=== PATIENT | female | born 1975 | race African-American/Black ===

== ENCOUNTER 2021-10-21 18:11 | Emergency (ER) | payer OTHER, SELFPAY ==
--- NOTE | ~2021-10-21 | XR_ITS ---
EXAMINATION: XR lumbar spine 2-3V DATE: 10/21/2021 19:59 INDICATION: Low back pain. TECHNIQUE: 3 views of lumbar spine were obtained. COMPARISON: None. FINDINGS: There is 5 degrees dextrocurvature of thoracolumbar spine. Body heights and intervertebral disc heights are normal. There are endplate osteophytes at most levels. There is multilevel mild face t joint osteoarthritis. Surgical clips in the right upper quadrant are likely from cholecystectomy. IMPRESSION: 1. Mild lumbar spondylosis. Reviewed, dictated and finalized at location [facility]. [employer] IMPRESSION: 1. Mild lumbar spondylosis.
--- NOTE | ~2021-10-21 | XR_ITS ---
EXAMINATION: XR knee LT 3V DATE: 10/21/2021 19:59 INDICATION: Left knee pain. TECHNIQUE: 3 views of left knee were obtained. COMPARISON: None. FINDINGS: Bone alignment is normal. No fracture. There is mild tricompartmental osteoarthritis. No kn ee joint effusion. IMPRESSION: 1. Mild left knee osteoarthritis. Reviewed, dictated and finalized at location E. [employer]
[2021-10-21 18:13] VITALS: BP 152/87; PULSE 89; RESP 18; TEMP 36.4; O2SAT 100
[2021-10-21] MEDS: HYDROcodone/acetaminophen (*CRX) 5-325 MG TABLET 2 TAB PO (19:23)
[2021-10-21 19:37] VITALS: BP 183/105; PULSE 72; RESP 15; O2SAT 100
--- NOTE | 2021-10-21 19:57 | PC.NURSE ---
Pt to XRAY at this time.
[2021-10-21] MEDS: cloNIDine HCL 0.1 MG TABLET PO ×2 (20:42)
--- NOTE | 2021-10-21 20:42 | ED.GENADULT ---
HPI - General Adult General Chief complaint: Back Pain/Injury Stated complaint: Back and left knee pain Time Seen by Provider: 10/21/21 18:46 Source: patient Mode of arrival: ambulatory Limitations: no limitations History of Present Illness HPI narrative: Patient presents for evaluation of low back pain and left knee pain for the last 3 days. She cannot identify any precipitating injury. She states that she sits at a desk most of the day. She knows that she is overweight and has planned weight loss surgery. She has had x rays of her lumbar spine and knees performed in the past and these studies showed arthritis. Lumbar film also showed mild foraminal narrowing. She states pain in the left knee is in the anterior aspect of the joint and radiates down the leg. No pain in the posterior aspect of the leg. She states she has had a venous duplex in the past which was negative. She rates her pain 7 out of 10 in severity. She also rates pain in her low back is 7 out of 10 in severity. She describes the pain as sharp. She denies any saddle anesthesia. She denies bladder/bowel incontinence. She does have some pain in right lower back without any urinary symptoms, fever, chills, nausea or vomiting. She has tried tylenol for her pain which helps somewhat. She states NSAIDS cause GI upset. She experiences episodes of vomiting with tramadol. She has also tried lidoderm patches. Related Data Home Medications Medication Instructions Recorded Confirmed losartan-hydrochlorothiazide 1 tablet PO DAILY 10/21/21 Allergies Allergy/AdvReac Type Severity Reaction Status Date / Time azithromycin Allergy Vomiting Verified 10/21/21 21:14 erythromycin base Allergy Vomiting Verified 10/21/21 21:14 tramadol Allergy Vomiting Verified 10/21/21 21:14 Review of Systems Review of Systems: CONSTITUTIONAL: Denies fever, chills, or sweats. EYES: Denies visual changes, redness, or discharge. ENT: Denies rhinorrhea, congestion, sore throat, or otalgia. CARDIOVASCULAR: Denies chest pain, palpitations, or edema. RESPIRATORY: Denies cough or dyspnea. GASTROINTESTINAL: Denies abdominal pain, nausea, vomiting, or diarrhea. GENITOURINARY: Denies dysuria or hematuria. SKIN: Denies rash or itching. MUSCULOSKELETAL: Reports low back pain and left knee pain. NEUROLOGIC: Denies headache, numbness, dizziness, or weakness. PSYCHIATRIC: Denies anxiety or depression. [facility] Past Medical History Medical History Hypertension Obesity Osteoarthritis Surgical History Surgical History History of cholecystectomy History of hysterectomy History of tonsillectomy Family History Family History Mother Diabetes mellitus Social History Social History Smoking packs per day: 0.25 Smoking cigarettes per day: 5.0 Smoking status: Current every day smoker Alcohol intake: current Alcohol use details: social Living arrangements: alone Additional occupation/education comments: Works for [employer] Gender identity (if verbalized by the patient): Female Sexual Orientation (if Verbalized by the Patient): Straight or Heterosexual Spiritual care concerns: No Exam Narrative: GENERAL: Well-appearing, well-nourished, and in no acute distress. HEAD: Normocephalic, atraumatic. EYES: PERRLA and EOMI. ENT: Nares clear, no rhinorrhea or epistaxis. Mucous membranes moist. Oropharynx without tonsillar hypertrophy exudate or other lesions. Bilateral TMs pearly elizabeth nonbulging NECK: Supple. No adenopathy or masses. No carotid bruits or JVD CHEST: Clear to auscultation. No respiratory distress. No wheezes rales or rhonchi HEART: Regular rate and rhythm. No murmur heard. Normal peripheral pulses. ABDOMEN: Soft,
[2021-10-21 20:43] VITALS: BP 187/119; PULSE 71; RESP 17; O2SAT 99
[2021-10-21 20:57] LABS: Add Urine Microscopic? YES; Appearance Urine Clear (Clear); Bacteria Urine Trace /hpf; Bilirubin Urine Negative (Negative); Blood Urine Negative (Negative); Color Urine Yellow (Yellow); Glucose Urine UA Negative (Negative); Ketones Urine Negative (Negative); Leukocyte Esterase Ur Trace LEU/UL (Negative); Mucus Urine Moderate /lpf; Nitrate Urine Negative (Negative); Protein Urine Negative (Negative); Specific Grav Ur 1.027 (1.001-1.035); Squamous Epithelial Cell Urine Many /hpf (Few); Urobilinogen Urine Negative mg/dL (<2.0)
[2021-10-21 21:11] VITALS: BP 158/104; PULSE 65; RESP 18; O2SAT 99
== END 2021-10-21 21:33 | disposition home or self-care (01) ==
PROVIDERS: Emergency Provider Nurse Practitioner
DX: M47.816 Spondylosis without myelopathy or radiculopathy, lumbar region (principal); M17.12 Unilateral primary osteoarthritis, left knee; I10 Essential (primary) hypertension; E66.9 Obesity, unspecified; Z68.43 Body mass index [BMI] 50.0-59.9, adult; F17.210 Nicotine dependence, cigarettes, uncomplicated
CPT/HCPCS: 72100; 73562; 81001; 99284; A9270

== ENCOUNTER 2023-07-08 07:07 | Emergency (ER) | payer OTHER, SELFPAY ==
[2023-07-08 07:11] VITALS: BP 180/92; PULSE 79; RESP 18; TEMP 36.7; O2SAT 100
[2023-07-08] MEDS: ACETAMINOPHEN/CODEINE (*CRX) 300/30 MG TABLET 1 TAB PO (08:45)
[2023-07-08] MEDS: CIPROFLOXACIN HCL 0.3% OP SOLN 2.5 ML BTL 1 DROP RIGHT EYE (08:45)
--- NOTE | 2023-07-08 10:58 | ED.EYEPROB ---
HPI - Eye Problem General Chief complaint: Eye Problems Stated complaint: eye swelling Time Seen by Provider: 07/08/23 07:17 History of Present Illness HPI Narrative: Patient presenting with severe pain to her right eye, does not recall any recent injury, does not wear contact lenses. Has been tearing up nonstop Related Data Home Medications Medication Instructions Recorded Confirmed losartan 100 1 tablet PO DAILY 10/21/ mg-hydrochlorothiazide 25 mg tablet Allergies Allergy/AdvReac Type Severity Reaction Status Date / Time acetaminophen [From Vicodin] Allergy Itching Verified 07/08/23 07:18 hydrocodone [From Vicodin] Allergy Itching Verified 07/08/23 07:18 azithromycin AdvReac Vomiting Verified 07/08/23 07:19 erythromycin base AdvReac Vomiting Verified 07/08/23 07:19 tramadol AdvReac Vomiting Verified 07/08/23 07:19 Review of Systems Review of Systems: CONST: No fever. HEENT: Eye pain PMFSH Past Medical History Medical History Hypertension Obesity Osteoarthritis Surgical History Surgical History History of cholecystectomy History of hysterectomy History of tonsillectomy Family History Family History Mother Diabetes mellitus Social History Social History Smoking packs per day: 0.25 Smoking cigarettes per day: 5.0 Smoking status: Current every day smoker Alcohol intake: current Alcohol use details: social Living arrangements: alone Additional occupation/education comments: Works for [employer] Gender identity (if verbalized by the patient): Female Sexual Orientation (if Verbalized by the Patient): Straight or Heterosexual Spiritual care concerns: No Exam Narrative: EXAMINATION OF ORGAN SYSTEMS/BODY AREAS: Constitutional: Vital signs per nursing GENERAL: Appears quite uncomfortable, cloth to her right eye, tearing HEAD: Normal with no signs of head trauma. EYES: EOMI, injected conjunctiva right eye, fluorescein uptake to center of eye right eye, PERRL; no signs of foreign body with eversion of lids ENT: Hearing grossly intact LUNGS: Nonlabored breathing. HEART: [Regular rate and rhythm] ABD: [Soft], [nontender to palpation] EXT: Normal range of motion SKIN: [No rashes or lesions.] NEURO: [Alert and oriented x 3. No gross focal sensory or strength deficits.] PSYCH: Normal affect Course Vital Signs Vital signs: Vital Signs Temperature 98.0 F 07/08/23 07:11 Pulse Rate 79 07/08/23 07:11 Respiratory Rate 18 07/08/23 07:11 Blood Pressure 180/92 H 07/08/23 07:11 Pulse Oximetry 100 07/08/23 07:11 Oxygen Delivery Room Air 07/08/23 07:11 Temperature 98.0 F 07/08/23 07:11 Pulse Rate 79 07/08/23 07:11 Respiratory Rate 18 07/08/23 07:11 Blood Pressure 180/92 H 07/08/23 07:11 Pulse Oximetry 100 07/08/23 07:11 Oxygen Delivery Room Air 07/08/23 07:11 MDM - Eye Problem MDM Narrative Medical decision making narrative: 48-year-old female presenting with right eye pain, on exam eye is injected, tearing, with extraocular movements intact, PERRL, pain resolved with tetracaine, patient able to open eyes and rest comfortably, and there is fluorescein uptake to the middle of her right eye, consistent with corneal abrasion. Eyedrops started, she does not wear contact lenses, she will be discharged with pain medications and IV antibiotics, she is unable to tolerate NSAIDs so I will give her narcotic pain medication., She has taken Tylenol 3's in the past and tolerates them well. Strict return precautions discussed, and the need for her to follow-up with an eye doctor in the next 1 to 2 days. Patient agreeable to this plan Discharge Plan Discharge Clinical Impression: Corneal abrasion Patient Disposition: Home, Se
== END 2023-07-08 09:13 | disposition home or self-care (01) ==
PROVIDERS: Emergency Provider Emergency Medicine
DX: S05.01XA Injury of conjunctiva and corneal abrasion without foreign body, right eye, initial encounter (principal); F17.210 Nicotine dependence, cigarettes, uncomplicated; I10 Essential (primary) hypertension; M19.90 Unspecified osteoarthritis, unspecified site; X58.XXXA Exposure to other specified factors, initial encounter
CPT/HCPCS: 99283; A9270

== ENCOUNTER 2025-04-20 15:51 | Emergency (ER) | payer OTHER, SELFPAY ==
--- NOTE | ~2025-04-20 | CT_ITS ---
CLINICAL INDICATION: Epigastric pain COMPARISON: None. TECHNIQUE: Multiple contiguous axial images of the abdomen and pelvis were performed following the ad ministration of with 100 mL Omnipaque-350 intravenous contrast The dose-length product (DLP) was 973.51 mGy-cm. Automated exposure control and iterative reconstruction technique were employed. FINDINGS/OBSERVATIONS: Visualized lower thorax: The bilateral lung bases are clear. The heart is of normal size, without pericardial effusion. Small hiatal hernia is present. Liver: The liver demonstrates homogeneous enhancement and is not enlarged. Gallbladder and biliary system: The gallbladder is surgically absent. Pancreas: The pancreas enhances homogeneously without ductal dilatation. Spleen: The spleen enhances homogeneously and is not enlarged. Kidneys: The bilateral kidneys enhance symmetrically without hydronephrosis or renal calculi. Adrenal glands: Unremarkable. Gastrointestinal tract: Postoperative change within the upper abdomen, consistent with gastric bypass. Trace mural thickening within the gastric pouch. Appendix: The air-filled appendix is of normal caliber (axial series, images 95 through 108) Vasculature: Unremarkable. Lymph nodes: No pathologically enlarged or morphologically suspicious lymph nodes within the retroperitoneum or at the root of the mesentery. Pelvic structures: The bladder is decompressed, limiting its evaluation. The uterus is either surgically absent or atrophic. Body wall and musculoskeletal: No significant degenerative disease within the lower thoracic or lumbosacral spine. IMPRESSION: Findings consistent with patient's history of gastric bypass Trace mural thickening within the gastric pouch. Reviewed, dictated and finalized at location A.
--- OUTSIDE RECORDS SUMMARY | 2025-04-20 15:53 | XMS_ITS | Clinical Summary ---
Author Organization [facility] Address [address] [place] [address] Phone Care Team Providers Care Line Runner Name Role Phone Jesus Bob DO Primary Care Provider [phone] Allergies Active Allergy Reactions Criticality Noted Date Comments Azithromycin Nausea and Vomiting High 10/26/2018 Erythromycin Nausea and Vomiting Low 05/09/2017 Ibuprofen Abdominal Pain Low 02/24/2022 Tramadol Nausea and Vomiting Low 09/18/2018 Medications Multivitamin Capsule 1 tablet(s), Oral, daily, 30 tablet(s), Tablet(s), 0 2 Active blood sugar diagnostic StripIndications :Type 2 diabetes mellitus without complication, without long-term current use of insulin ([facility]) Once daily testing, E11.9 100 Strip 2 Active buPROPion HCL (Wellbutrin XL) 150 mg Extended Release 24 hour tabletIndication s:Tobacco abuse Take 1 Tablet (150 mg) by mouth daily in the morning. 90 Tablet 2 3 Active zolpidem (AMBIEN) 5 mg tabletIndication s:Insomnia, unspecified type TAKE 1 TABLET(5 MG) BY MOUTH EVERY NIGHT NEEDED FOR INSOMNIA 30 Tablet 2 3 Active lisinopril-hydro CHLOROthiazide (ZESTORETIC) 10-12.5 mg tablet Active levomilnacipran (Fetzima) 40 mg Extended Release 24 hour capsule Acti ve escitalopram oxalate (LEXAPRO) 10 mg tablet Active naloxone (NARCAN) 4 mg/spray [place], Non-Aerosol EMERGENCY USE ONLY: Administer 1 spray (4 mg) in one nostril one time. May repeat in alternating nostrils every 2-3 min until responsive or EMS arrives. 2 Each 3 4 Active losartan (COZAAR) 25 mg tabletIndication s:Essential hypertension TAKE 1 TABLET(25 MG) BY MOUTH DAILY 90 Tablet 3 4 Active ALPRAZolam (XANAX) 0.25 mg tabletIndication s:Anxiety TAKE 1 TABLET(0.25 MG) BY MOUTH EVERY NIGHT NEEDED FOR ANXIETY 30 Tablet 4 Active Active Problems Patient Care Coordination No te Formatting of this note migh t be different from the original. Dr. Mo- bariatric surgeon- Ines AWV 02/24/2022 Problem Noted Date Diagnosed Date Liver cyst 09/30/2023 Colitis 04/10/2021 Overview (04/10/2021): Cscope/egd 04/03 Colon polyp 04/08/2021 Overview (2021): Hyperplastic 04/03 Vitamin D deficiency 10/09/2020 Overview (10/09/2020): Vit D 50K/wk 10/04-04/03 Type 2 diabetes mellitus wit hout complication, without long-term current use of insulin 10/09/2020 Primary osteoarthritis of right knee 10/08/2020 Primary osteoarthritis of left knee 10/08/2020 Quadriceps weakness 10/08/2020 Pain in both knees 10/08/2020 Anxiety 07/12/2020 Chronic gastritis 07/12/2020 Seasonal allergic rhinitis 07/12/2020 Depressive disorder 07/12/2020 Essential hypertension 07/12/2020 Insomnia 07/12/2020 Morbid obesity 07/12/2020 Gastroesophageal reflux disease without esophagi tis 07/12/2020 Primary osteoarthritis involving multiple joints 07/12/2020 Chronic midline low back pain without sciatica 1 Kidney stone 07/12/2020 Adrenal adenoma, left 05/22/2020 Overview (07/12/2020): MRI 1.5 cm lipid rich left adrenal adenoma 06/03 Obstructive sleep apnea 12/28/2018 Cerebrospinal fluid rhinorrhea 12/07/2018 Overview (07/12/2020): Added automatically from request for surgery [id number] Tobacco abuse 05/09/2017 Precordial chest pain 05/09/2017 Family History Medical History Relation Name Comments Diabetes Brother 1 Hypertension Brother 1 Diabetes Brother 2 Hypertension Brother 2 Diabetes Brother 3 Hypertension Brother 3 Diabetes Brother 4 Billy delgado Hypertension Brother 4 Billy delgado Diabetes Brother 5 Christopher Delgado Hypertension Brother 5 Christopher Delgado Hypertension Brother 6 Fidencio Delgado Breast Cancer Maternal Aunt Diabetes Mother Chelita Jewell Heart Disease Mother Chelita Jewell Congestive H eart Failure Heart Failure Mother Chelita Jewell CHF Hypertension Mother Chelita Jewell Colon Cancer Neg Hx Relation Name Status Comments Brother 1 Brother 2 Brother 3 Brother 4 Billy delgado Brother 5 Christopher Delgado Brother 6 Fidencio Delgado Father Maternal Aunt Mother Chelita Jewell Alive Social History Tobacco Use Types Packs/Day Years Used Date Smoking Tobacco: Some Days Cigarettes Last attempted to quit: 07/05/1995 Smokeless Tobacco: Never Tobacco Cessation:Ready to Q uit: Not Asked; Counseling Given: Not Answered Alcohol Use Standard Drinks/Week Comments Not Currently 0 (1 standard drink = 0.6 oz pur e alcohol) Monthly Comments No Sex and Gender Information Value Date Recorded Sex Assigned at Not on file Legal Sex Female 3:29 PM CDT Gender Identity Not on file Sexual Orientation Not on file Last Filed Vital Signs Vital Sign Reading Time Taken Comments Blood Pressure 193/96 12/30/2023 12:30 PM CDT Pulse 68 12/30/2023 12:30 PM CDT Temperature 36.7 C (98 F) 12/30/2023 12:30 PM CDT Respiratory Rate 16 12/30/2023 12:30 PM CDT Oxygen Saturation 97% 12/30/2023 12:30 PM CDT Inhaled Oxygen Concentration - - Weight 109.3 kg (241 lb) 12/30/2023 10:10 AM CDT Height 162.6 cm (5' 4) 12/30/2023 10:10 AM CDT Body Mass Index 41.37 12/30/2023 10:10 AM CDT Plan of Treatment Health Maintenance Due Date Last Done Comments DIABETES MICROALBUMIN ANNUAL SCREEN 1993 DTAP/TDAP/TD VACCINES (1 - Tdap) 1994 HEPATITIS B VACCINES (1 of 3 - 19+ 3-dose series) 1994 FIT-DNA Q 3 years 2020 FIT/FOBT Q 1 year 2020 Flex Sig/CT Colonography Q 5 years 2020 DIABETES ANNUAL RETINAL EXAM 02/24/2022, 01/17/2021, 01/17/2021, Additional history exists DIABETES HBA1C Q 6 MONTHS 10/29/20232022, 03/12/2022, 06/27/2021, Additional history exists DIABETES ANNUAL FOOT EXAM 04/08/20242022, 04/08/2023, 03/27/2022 BREAST CANCER SCREENING 04/28/2024 04/28/20 23, 04/28/2023, 03/20/2022, Additional history exists DIABETES: A1C (Auto Order) 04/28/202404/28, 03/12/2022, 06/27/2021, Additional history exists LDL CHOLESTEROL ANNUAL 04/28/2024 , 03/12/2022, 06/27/2021, Additional history exists Preventative Visit- Commercial 09/14/2024 0 04/08/2023, 02/24/2022, 06/27/2021, Additional history exists ZOSTER VACCINE (1 of 2) 2025 INFLUENZA VACCINE (#1) 2025 10/01/2022, 2020 COLORECTAL SCREENING 10/19/2033 10/19/2023, 2021, 04/08/2021 Colorectal Cancer Screening 10/19/2033 Procedures Procedure Name Priority Date/Time Associated Diagnosis Comments LIPID PANEL Routine 04/28/2023 10:33 AM CDT Hyperlipidemia, unspecified hyperlipidemia type HEMOGLOBIN A1C Routine 04/28/2023 10:33 AM CDT Type 2 diabetes mellitus without complication, without long-term current use of insulin ([facility]) MAMMO 3D PETR SCREEN BILAT W OR WO CAD Routine 04/28/2023 9:09 AM CDT Encounter for screening mammogram for malignant neoplasm of breast COLONOSCOPY REPORT 2021 11 :37 AM CDT from Last 3 Months or Most Recently Relevant to Health Maintenance Results * (ABNORMAL) HEMOGLOBIN A1C (04/28/2023 10:33 AM CDT) HEMOGLOBIN A1C 5.7(H) <5.7 % of total Hgb Juan Alberto [employer] BattlesYelena Vanessa Comment: For someone without known diabetes, a hemoglobin A1c value between 5.7% and 6.4% is consistent with prediabetes and should be confirmed with a follow-up test. For someone with known diabetes, a value <7% indicates that their diabetes is well controlled. A1c targets should be individualized based on duration of diabetes, age, comorbid conditions, and other considerations. This assay result is consistent with an increased risk of diabetes. Currently, no consensus exists regarding use of hemoglobin A1c for diagnosis of diabetes for children. ESTIMATED AVERAGE GLUCOSE (MG/DL) 117 mg/dL Juan Alberto [employer] BattlesYelena Vanessa ESTIMATED AVERAGE GLUCOSE (MMOL/L) 6.5 mmol/L Juan Alberto [employer] Batt[employer]elena Vanessa Comment: FASTING:YES FASTING: YES Test Performed at: [facility] [address] [place] [id number] ChioWilliamKimberlyn Olga Lopez Blood 04/28/2023 10:3 3 AM CDT 04/28/2023 10:33 AM CDT Kodi HUSTON CHEMISTRY ORDERABLES Final Res ult [facility] [phone] [place] [address] [address] [place] [address] * (ABNORMAL) LIPID PANEL (04/28/2023 10:33 AM CDT) CHOLESTEROL 193 <200 mg/dL Juan Alberto [employer] BattlesYelena Vanessa HDL 54 > OR = 50 mg/dL Juan Alberto [employer] BattlesYelena Vanessa TRIGLYCERIDE 138 <150 mg/dL Juan Alberto Vanessa LDL CALCULATED 113(H) mg/dL (calc) Juan Alberto [employer] BattlesYelena Vanessa Comment: Reference range: <100 Desirable range <100 mg/dL for primary prevention; <70 mg/dL for patients with CHD or diabetic patients with > or = 2 CHD risk factors. LDL-C is now calculated using the Binh calculation, which is a validated novel method providing better accuracy than the Friedewald equation in the estimation of LDL-C. [employer] et al. THMOAS. 2013;310(47): 2638-7854 (http://education.Predictry/faq/YWN185) CHOL/HDL RATIO 3.6 <5.0 (calc) [facility] TOTAL NON-HDL CHOL(LDL+VLDL) 139(H) <130 mg/dL (calc) [facility] Comment: For patients with diabetes plus 1 major ASCVD risk factor, treating to a non-HDL-C goal of <100 mg/dL (LDL-C of <70 mg/dL) is considered a therapeutic option. FASTING:YES FASTING: YES Test Performed at: [place] [address] [address] [address] ChioTova Lopez Blood 04/28/2023 10:3 3 AM CDT 04/28/2023 10:33 AM CDT Kodi HUSTON CHEMISTRY ORDERABLES Final Res ult [facility] [phone] [place] [address] [address] [place] [address] * MAMMO SCRN BILAT 3D PETR W OR WO CAD (04/28/2023 9:09 AM CDT) Anatomical Region Laterality Modality Breast Bilateral Mammography 04/28/2023 9:09 AM CDT Impressions 04/28/2023 9:50 AM CDT : BI-RADS Category 2, benign mammogram. Recommend yearly bilateral screening mammogram. Narrative 04/28/2023 9:50 AM CDT EXAM: MAMMO SCRN BILAT 3D PETR W OR WO CAD DATE: 04/28/2023 CLINICAL HISTORY: Screening in an asymptomatic patient with a family history of breast cancer TECHNIQUE: Bilateral full field digital mammography and digital tomosynthesis were performed in the CC and MLO projections. Comparison was made to prior bilateral mammograms performed March 20, 2022, February 02, 2021 and September 27, 2019. CAD was utilized. FINDINGS: The breast parenchyma is fatty. The parenchymal pattern is unchanged compared to the prior exams. A few scattered bilateral calcifications are benign in appearance and represent calcified oil cysts. A few scattered bilateral focal asymmetries are unchanged. There is no new suspicious asymmetry or mass, area of architectural distortion or suspicious microcalcification. us Mike Hahn MD MAMMO ORDERABLES Final Result * COLONOSCOPY REPORT (2021 11:37 AM CDT) Narrative Procedure Note Charles Rodriguez MD - 04/08/2021 12:51 PM CDT [facility] Endoscopy Patient Name: Ravinder Delgado Procedure Date: 04/08/2021 Date of : 1975 Attending MD: Charles Rodriguez MD Procedure: Colonoscopy Indications: Diarrhea Providers: Charles Rodriguez MD Referring MD: Bennie Hahn MD Medicines: Propofol per Anesthesia Complications: No immediate complications. Procedure: Informed consent was obtained for the procedure, including moderate sedation after risks were discussed. Based on the pre-procedure assessment, including review of the patient's medical history, medications, allergies, and review of systems, the patient was deemed to be an appropriate candidate for sedation. A timeout was performed. Continuous ECG monitoring, pulse oximetry, blood pressure monitoring, and direct observation were performed. The scope was introduced through the anus and advanced to the cecum, identified by appendiceal orifice and ileocecal valve. The colonoscopy was performed without difficulty. The patient tolerated the procedure well. The quality of the bowel preparation was excellent. Estimated Blood Loss: Estimated blood loss: none. Findings: Normal mucosa was found in the entire colon. Biopsies for histology were taken with a cold forceps from the right colon and left colon for evaluation of microscopic colitis. A diminutive polyp was found in the descending colon. The polyp was sessile. The polyp was removed with a cold biopsy forceps. Resection and retrieval were complete. Impression: - Normal mucosa in the entire examined colon. Biopsied. - One diminutive polyp in the descending colon, removed with a cold biopsy forceps. Resected and retrieved. Recommendation: - Await pathology results. - If the pathology report reveals adenomatous tissue, then repeat the colonoscopy for surveillance in 7 years. - If the pathology report reveals no adenomatous tissue, then repeat the colonoscopy for surveillance in 10 years. Charles Rodriguez MD 04/08/2021 12:50:50 PM This report has been signed electronically. Number of Addenda: [address]; [place] [address] Charles Rodriguez MD GI PROCEDURE ORDERABLES Marycruz l Result from Last 3 Months or Most Recently Relevant to Health Maintenance Insurance [employer] [id number] [employer] Member Subscriber Plan / Payer (Ef fective for All Dates) Name:Ravinder Delgado Relation to Subscriber:Self Name:Ravinder Delgado Subscriber ID:Not on file Payer ID:Not on file Group ID:[id number] Type:RX Commercial Address: [place], [place] RX LERMA PLANS (INTERNAL) [facility] Care Teams Line Runner Relationship Specialty Start Date End Date Jesus Bob DO [address] [place] [id number] [place] [id number] PCP - General Family Practice 09/30/23
--- OUTSIDE RECORDS SUMMARY | 2025-04-20 15:53 | XMS_ITS | Clinical Summary ---
Author Organization [facility] Address [address] [place] [address] Care Team Providers Care Sizer Machine Name Role Phone Mike Hahn MD Primary Care Provider [phone] Source Comments [facility],non-owned Affiliates and Associated Physician Practices is amultiple site organization consisting of ambulatory clinics and hospital sitesin [place], [place], [place] and [place]. This disclosure is being madepursuant to the Care Everywhere program and may not contain all information available regarding this patient. Last updated 18.[facility] Allergies Active Allergy Reactions Criticality Noted Date Comments Azithromycin Vomiting 10/26/2018 Erythromycin Nausea and/or Vomiting 05/09/2017 Tramadol Nausea and/or Vomiting Low 09/18/2018 Medications * Be aware that medications may not be up to date on this document. Alwaysverify current medications with the patient. ALPRAZolam (XANAX) 0.5 MG tablet Take 0.5 mg by mouth 2 times daily 10/05/2020 Active phentermine (ADIPEX-P) 37.5 MG tablet Take 37.5 mg by mouth once daily 10/05/2020 Active losartan-hydroC HLOROthiazide (HYZAAR) 100-25 MG tablet Take 1 tablet by mouth once daily 10/05/2020 Active dicyclomine (BENTYL) 20 MG tablet Take 20 mg by mouth 4 times daily 10/16/2020 Active pantoprazole EC (PROTONIX) 40 MG tablet Take 40 mg by mouth once daily 10/05/2020 Active Cholecalciferol (VITAMIN D3) 1.25 MG (34113 UT) capsule Take 1 capsule by mouth every 7 days 10/09/2020 Active cyclobenzaprine (FLEXERIL) 10 MG tablet Take 10 mg by mouth every 8 hours as needed 06/30/2020 Active fluticasone propionate (FLONASE) 50 MCG/ACT nasal spray once daily as needed 10/05/2020 Active zolpidem (AMBIEN) 5 MG tablet nightly as needed 10/08/2020 Active ondansetron, disintegrating, (ZOFRAN ODT) 4 MG tablet Take 1 (one) tablet by mouth every 6 hours as needed for Nausea/Vomiti ng Allow tablet to dissolve on the tongue 20 tablet 11/02/2020 Active docusate sodium (COLACE) 100 MG capsule Take 1 (one) capsule by mouth once daily 20 capsule 1 11/02/2020 Active HYDROcodone-heber taminophen (NORCO) 5-325 MG tablet Take 1 (one) tablet by mouth every 6 hours as needed for Pain (severe) 8 tablet 12/06/2020 Active Active Problems Problem Noted Date Diagnosed Date KWASI (obstructive sleep apnea) 11/01/2020 S/P tonsillectomy 11/01/2020 Family History Medical History Relation Name Comments Diabetes - Type 2 Brother Cancer - Breast Maternal Aunt Diabetes - Type 2 Mother Hypertension Mother Cancer - Breast Paternal Aunt Cancer - Breast Paternal Grandmother Relation Name Status Comments Brother Maternal Aunt Mother Alive Paternal Aunt Paternal Grandmother Social History Tobacco Use Types Packs/Day Years Used Date Smoking Tobacco: Every Day Cigarettes Smokeless Tobacco: Never Alcohol Use Standard Drinks/Week Comments Yes 0 (1 standard drink = 0.6 oz pur e alcohol) Special Ocassions Comments No Sex and Gender Information Value Date Recorded Sex Assigned at Female 02/27/2021 4:55 PM CDT Legal Sex 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 Gender Identity Female 02/27/2021 4:55 PM CDT Sexual Orientation Straight 02/27/2021 4: 55 PM CDT Last Filed Vital Signs Vital Sign Reading Time Taken Comments Blood Pressure 124/78 03/26/2021 10:39 AM CDT Pulse 81 03/26/2021 10:39 AM CDT Temperature 36.8 C (98.2 F) 03/26/2021 10:39 AM CDT Respiratory Rate 20 03/26/2021 10:3 9 AM CDT Oxygen Saturation 98% 03/26/2021 10: 39 AM CDT Inhaled Oxygen Concentration - - Weight 140.6 kg (310 lb) 05/06/2021 7:55 AM CDT self reported Height 163.8 cm (5' 4.5) 05/06/2021 7:55 AM CDT Body Mass Index 52.39 05/06/2021 7:55 AM CDT Plan of Treatment Health Maintenance Due Date Last Done Comments COLOGUARD (AGES 45-75) - COLON CA SCREENING 1975 COLON MONITORING 1975 COLONOSCOPY - COLON CA SCREENING 1975 CT COLONOGRAPHY - COLON CA SCREENING 1975 Colorectal Cancer Screening 1975 FIT - COLON CA SCREENING 1975 FLEX SIG - COLON CA SCREENING 1975 LIPID TESTING 1975 HIV SCREENING 1990 HEPATITIS C SCREENING 04/04/1993 DTAP/TDAP/TD VACCINES (1 - Tdap) 1994 HEPATITIS B VACCINE (1 of 3 - 19+ 3-dose series) 1994 PNEUMOCOCCAL VACCINE 50+ (1 of 2 - PCV) 1994 PAP SMEAR 1996 MAMMOGRAM 03/29/2017 03/29/2015 SCREENING FOR DIABETES 03/22/2024 , 11/01/2020, 04/16/2020, Additional history exists COVID-19 VACCINE (1 - season) 2024 DEPRESSION SCREENING 09/14/2024 ZOSTER VACCINE (1 of 2) 2025 INFLUENZA VACCINE (#1) 2025 10/12/2020 HIB VACCINE Aged Out No longer eligi ble based on patient's age to complete this topic HPV VACCINE Aged Out No longer eligi ble based on patient's age to complete this topic MENINGOCOCCAL (Group B) VACCINE SHARED DECISION-MAKING Aged Out No longer eligible based on patient's age to complete this topic MENINGOCOCCAL GROUPS A/C/Y/W VACCINE Aged Out No longer eligible based on patient's age to complete this topic Procedures Procedure Name Priority Date/Time Associated Diagnosis Comments BASIC METABOLIC PANEL (CALCIUM TOTAL) STAT 03/22/2021 10:34 PM CDT MAMMO BILAT SCREENING Routine 03/29/2015 9:02 AM CDT Other screening mammogram from Last 3 Months or Most Recently Relevant to Health Maintenance Results * (ABNORMAL) BASIC METABOLIC PANEL (CALCIUM TOTAL) (03/22/2021 10:34 PM CDT) Glucose 124(H) 70 - 105 mg/dL 03/22/2021 10:57 PM CDT [facility] Sodium 139 136 - 145 mmol/L 03/22/2021 10:57 PM CDT [facility] Potassium 3.5 3.5 - 5.1 mmol/L 03/22/2021 10:57 PM CDT [facility] Chloride 100 98 - 107 mmol/L 03/22/2021 10:57 PM CDT [facility] CO2 26 23 - 31 mmol/L 03/22/2021 10:57 PM CDT [facility] Calcium 9.8 8.4 - 10.4 mg/dL 03/22/2021 10:57 PM CDT [facility] Anion Gap 13 8 - 18 mmol/L 03/22/2021 10:57 PM CDT [facility] BUN 15 7 - 18.7 mg/dL 03/22/2021 10:57 PM CDT [facility] Creatinine 0.80 0.57 - 1.11 mg/dL 03/22/2021 10:57 PM CDT [facility] eGFR by MDRD >60 >60 mL/min/1.7 3m2 03/22/2021 10:57 PM CDT [facility] eGFR by MDRD >60 >60 mL/min/1.7 3m2 03/22/2021 10:57 PM CDT [facility] Blood BLOOD SPECIMEN / Unknown Venipuncture / Unknown 03/22/2021 10:34 PM CDT 03/22/2021 10:38 PM CDT us Mason Rider DO LAB - CHEMISTRY ORDERABLES Fin al Result [facility] [address] [place] [address] * MAGALI SCREENING DIGITAL IMAGE BILATERAL [id number] (03/29/2015 9:02 AM CDT) Anatomical Region Laterality Modality Breast Bilateral Mammography 03/29/2015 11:3 3 AM CDT Narrative 03/29/2015 1:47 PM CDT EXAMINATION: Digital screening mammogram on 03/29/2015. PRIOR: No prior breast imaging studies are available for comparison. RISK ASSESSMENT: Based on the information provided by your patient, her lifetime risk of breast cancer is average (<15%) (calculated at 11% by the BRCAPRO model, 14% by the Kurtis model, 8% by the Lori model, and 14% by the Tyrer-Cuzick model). Please note this information is only as accurate as the data entered by the patient. FINDINGS: Computer assisted detection was utilized. Tissue is almost entirely fatty. No suspicious masses, areas of architectural distortion or microcalcifications are evident in either breast. ASSESSMENT: BIRADS 1 : Negative mammogram RECOMMENDATION: Screening mammogram in one year. Thank you for allowing us to participate in the care of your patient. [facility] utilizes [employer] as a reminder system to notify patients of their next recommended mammogram. I, Irais Lund, have personally reviewed the images and I agree with this report. us Javier Barboza MD MAMMO ORDERABLES Final Result from Last 3 Months or Most Recently Relevant to Health Maintenance Insurance [facility] Advance Directives * Full Code (Latest Code Status on File) Date Activated Date Inactivated Comments 11/01/2020 11:10 AM 11/02/2020 10:43 AM Care Teams Sizer Machine Relationship Specialty Start Date End Date Mike Hahn MD [address] [facility] [place] [address] PCP - General Internal Medicine 12/06/20
--- OUTSIDE RECORDS SUMMARY | 2025-04-20 15:53 | XMS_ITS | Clinical Summary ---
Author Organization [facility] Address [address] [place] [address] Care Team Providers Care Value Stream Coach Name Role Phone Juan Johns MD Primary Care Prov ider Allergies Active Allergy Reactions Criticality Noted Date Comments Azithromycin Vomiting 01/23/2022 Tramadol Vomiting 01/23/2022 Medications ALPRAZolam (XANAX) 0.25 MG tablet TAKE 1 TABLET(0.25 MG) BY MOUTH EVERY NIGHT NEEDED FOR ANXIETY 4 Active pantoprazole EC (PROTONIX) 40 MG tablet Take 1 tablet (40 mg total) by mouth before breakfast. Active busPIRone (BUSPAR) 10 MG tabletIndications :Anxiety Take 2 tablets (20 mg total) by mouth 2 (two) times daily. 120 tablet 4 Active losartan (COZAAR) 50 MG tabletIndications :Primary hypertension TAKE 1 TABLET BY MOUTH DAILY 30 tablet 2 5 Active Active Problems Problem Noted Date Diagnosed Date Primary hypertension 06/29/2024 Assessment & Plan (06/29/2024 4:20 PM CDT): Chronic. Uncontrolled. Has tried hydrochlorothiazide, discontinued secondary to concern for extra fluid loss with history of bariatric surgery. Hasn't really tried amlodipine. Patient reported trying 1 time of amlodipine that was for family members. Asymptomatic at this time. - BP today of 150/90, with repeat of 140/80 - Goal of < 140/90 per JNC8 guidelines - Current medications losartan 50 mg p.o. daily - Discussed DASH diet / Na reduction - Discussed increasing physical activity, averaging 150 min / week of moderate exercise - Continued to encourage moderation of ETOH use and smoking cessation - Discussed that hypertension increases risk for cardiovascular events, renal impairment, and stroke -Discussed with patient likely elevated blood pressure associated with uncontrolled anxiety -With blood pressure being borderline, patient would like to work on controlling anxiety prior to starting any new medications -If blood pressure still elevated despite controlling anxiety, consider addition of amlodipine 10 mg p.o. 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 Uncontrolled. Previously but has been on Lexapro >12 years ago with no side effects, Prozac with no side effects, Zoloft with decreased libido. Patient has been experiencing additional stress secondary to moving to the area and mother last year on 08/16/2024. Previously was on Xanax 0.25 mg p.o. as needed, which she took 2-3 X a week. -Previous MAXIMINO-7 Total Score: 13, previously 9 -Medications: BuSpar 20 mg p.o. twice daily, hydroxyzine as needed -Patient does not want to see psychiatry at this time. Discussed with patient that she had trialed/failed/had side effects with 3 medications. However, patient states that she was on Lexapro for only 30 days. Likely did not get enough time prior to discontinuation. Will consider trialing Lexapro if BuSpar does not alleviate symptoms. Consider Lexapro and augmentation if patient still does not want to see psychiatry after trialing BuSpar -Discussed augmentation with Lexapro, however, patient is a little overwhelmed for how many pills she takes. Would like to continue with current regimen -Patient to RTC if worsening symptoms Assessment & Plan (06/29/2024 4:22 PM CDT): Chronic. Uncontrolled. Reports dysregulation, excessive, and out of control worry more days than not in the last 6 mo. Previously but has been on Lexapro >12 years ago with no side effects, Prozac with no side effects, Zoloft with decreased libido. Patient has been experiencing additional stress secondary to moving to the area and mother last year on 08/16/2024. Previously was on Xanax 0.25 mg p.o. as needed, which she took 2-3 X a week. Has not been on the new medications for quite some time. - Reports: Restlessness and Sleep disturbance and excessive worry - MAXIMINO-7 Total Score: 13, previously 9 - States significant distress and impairment in social / occupational aspects of life - Sxs not attributable to substance use, medication side effects, or other mental / medical disorders - D/w pt that increasing physical activity can alleviate some sxs -Patient does not want to see psychiatry at this time. Discussed with patient that she had trialed/failed/had side effects with 3 medications. However, patient states that she was on Lexapro for only 30 days. Likely did not get enough time prior to discontinuation. Will consider trialing Lexapro if BuSpar does not alleviate symptoms. Consider Lexapro and augmentation if patient still does not want to see psychiatry after trialing BuSpar -Increase BuSpar to 20 mg p.o. twice daily -Start hydroxyzine as needed -Follow-up in 3 weeks for medication efficacy and side effect profile Family History Medical History Relation Comments Hypertension Brother Cancer Maternal Aunt Diabetes Mother Hypertension Mother Relation Status Comments Brother Maternal Aunt Mother Social History Tobacco Use Types Packs/Day Years Used Date Smoking Tobacco: Every Day Cigarettes Tobacco Cessation:Ready to Q uit: No; Counseling Given: Not Answered Alcohol Use Standard Drinks/Week Comments Yes 0 (1 standard drink = 0.6 oz pur e alcohol) socially PHQ-2 Answer Date Recorded Patient Health Questionnaire-2 Score 0 06/01/2024 Comments No Sex and Gender Information Value Date Recorded Sex Assigned at Not on file Legal Sex Female 10:01 AM CDT Gender Identity Not on file Sexual Orientation Not on file Last Filed Vital Signs Vital Sign Reading Time Taken Comments Blood Pressure 140/80 06/29/2024 4:18 PM CDT Pulse 74 06/29/2024 3:32 PM CDT Temperature 36.2 C (97.1 F) 06/29/2024 3:32 PM CDT Respiratory Rate 18 06/29/2024 3:32 PM CDT Oxygen Saturation 96% 06/29/2024 3:32 PM CDT Inhaled Oxygen Concentration - - Weight 102.4 kg (225 lb 12.8 oz) 06/29/2024 3:32 PM CDT Height 162.6 cm (5' 4) 06/29/2024 3:32 PM CDT Body Mass Index 38.76 06/29/2024 3:32 PM CDT Plan of Treatment Health Maintenance Due Date Last Done Comments Colorectal Cancer Screening Colonoscopy (10 Years) 1975 Annual Physical 1978 Hepatitis C 1993 DTaP, Tdap and Td Vaccines (1 - Tdap) 1994 Hepatitis B Vaccines (1 of 3 - 19+ 3-dose series) 1994 Pneumococcal Vaccine: 50+ Years (1 of 2 - PCV) 1994 COVID-19 Vaccine (1 - season) 2024 PHQ-2 (Physician [place] Ira) 09/14/2024 06/01/2024 Zoster Vaccines (1 of 2) 2025 Mammogram Screening 04/28/2025 04/28/2023, 03/20/2022, 02/02/2021, Additional history exists Meningococcal B Vaccine Aged Out No l onger eligible based on patient's age to complete this topic Meningococcal Vaccine Aged Out No cheyenne crissy eligible based on patient's age to complete this topic RSV Immunizations Under 20 Months Aged Out No longer eligible based on patient's age to complete this topic Insurance [facility] Care Teams Value Stream Coach Relationship Specialty Start Date End Date María VII, Juan Bell MD [address] [place] [id number] PCP - General FAMILY PRACTICE 06/01/24
--- OUTSIDE RECORDS SUMMARY | 2025-04-20 15:53 | XMS_ITS | Clinical Summary ---
Author Organization [facility] Address [address] [place] [address] Care Team Providers Care Precision Farming Coordinator Name Role Phone Bennie Hahn MD Primary Care Provider [phone] Allergies Active Allergy Reactions Criticality Noted Date Comments Azithromycin Vomiting High 10/26/2018 Erythromycin Tramadol Nausea & Vomiting Low 09/18/2018 Hydrocodone-Acetaminophen Itching Low 09/16/2023 Medications losartan-hydroc hlorothiazide (HYZAAR) 100-25 mg per tablet Take 1 tablet by mouth daily 05/23/2021 Active cyanocobalamin (Vitamin B-12) 1,000 mcg tabletIndicatio ns:Prevention of Vitamin B12 Deficiency Take 1,000 mcg by mouth daily Active multivitamin capsule Take 1 capsule by mouth daily Active ascorbic acid (ascorbic acid with sreedhar hips) 500 mg tablet,chewable Acti ve methocarbamoL (ROBAXIN) 500 mg tablet Take 1 tablet (500 mg total) by mouth 2 (two) times a day 20 tablet 12/27/2022 Active calcium carbonate (CALCIUM 500 ORAL) Take by mouth Active Active Problems Problem Noted Date Diagnosed Date Morbid obesity 05/15/2021 BMI 50.0-59.9, adult 05/15/2021 Obstructive sleep apnea 12/28/2018 CSF rhinorrhea 12/07/2018 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 12/07/2018 Overview (12/07/2018): Added automatically from request for surgery [id number] Arthralgia of left knee 09/18/2018 Osteoarthritis of left knee 09/18/2018 Strain of left knee 09/18/2018 Surgical History Surgery Date Site/Laterality Comments CHOLECYSTECTOMY TUBAL LIGATION PARTIAL HYSTERECTOMY TONSILLECTOMY SLEEVE GASTROPLASTY 09/14/2021 - 09/13/2022 Medical History Medical History Date Comments Degenerative arthritis Hypertension Allergic rhinitis Sleep apnea Anxiety Vitamin D deficiency Morbid obesity (HCC) GERD (gastroesophageal reflux disease) Heartburn Family History Medical History Relation Name Comments Hypertension Brother Diabetes Mother Heart disease Mother Hypertension Mother Cancer Mother's Sister Anesthesia problems Neg Hx Relation Name Status Comments Brother Mother Mother's Sister Social History Tobacco Use Types Packs/Day Years Used Date Smoking Tobacco: Every Day Cigarettes 0.3 29.6 Started: 1995 Smokeless Tobacco: Never Tobacco Cessation:Ready to Q uit: Not Asked; Counseling Given: Not Answered Alcohol Use Standard Drinks/Week Comments Yes 1 (1 standard drink = 0.6 oz pur e alcohol) AUDIT-C Answer Date Recorded Q1: How often do you have a drink containing alc ohol? 2-4 times a month 05/15/2021 Average Number of Drinks Not on file 021 Frequency of Binge Drinking Not on file 09/2020 Personal Safety Answer Date Recorded Have you ever been in or are you currently in a harmful physical or emotional relationship or is someone making you feel afraid or unsafe? Denies 09/16/2023 Comments No Sex and Gender Information Value Date Recorded Sex Assigned at Not on file Legal Sex Female 12:44 PM 8TH GRADE MATHEMATICS TEACHER Gender Identity Female 05/14/2021 11:38 AM CDT Sexual Orientation Straight 05/14/2021 11 :38 AM CDT Obstetrics History Last Filed Vital Signs Vital Sign Reading Time Taken Comments Blood Pressure 173/100 09/17/2023 5:30 AM 8TH GRADE MATHEMATICS TEACHER Pulse 59 09/17/2023 5:30 AM 8TH GRADE MATHEMATICS TEACHER Temperature 37.2 C (98.9 F) 09/16/2023 7:07 PM 8TH GRADE MATHEMATICS TEACHER Respiratory Rate 16 09/17/2023 5:30 AM 8TH GRADE MATHEMATICS TEACHER Oxygen Saturation 98% 09/17/2023 5:30 AM 8TH GRADE MATHEMATICS TEACHER Inhaled Oxygen Concentration - - Weight 111.1 kg (245 lb) 09/16/2023 7:07 PM 8TH GRADE MATHEMATICS TEACHER Height 162.6 cm (5' 4) 09/16/2023 7:07 PM 8TH GRADE MATHEMATICS TEACHER Body Mass Index 42.05 09/16/2023 7:07 PM 8TH GRADE MATHEMATICS TEACHER Plan of Treatment Health Maintenance Due Date Last Done Comments Colon Cancer Screening-Colonoscopy 1975 Depression Screening 1975 Hepatitis C Screening 1975 DTaP/Tdap/Td Vaccine (1 - Tdap) 1986 Hepatitis B Screening 1993 Regular Well Visit/Exam 18-64 1993 Pneumococcal vaccine <65 (1 of 2 - PCV) 1994 Breast Cancer Screening-Mammogram 04/28/2024 04/28/2023, 04/28/2023, 03/20/2022, Additional history exists Zoster Vaccine (1 of 2) 2025 Influenza Vaccine (#1) 2025 Insurance [facility] CHOICE PLUS [facility] CHOICE PLUS [employer]IG[employer] [facility] CHOICE PLUS Advance Directives For more information, please contact: [phone] * Full Code (Latest Code Status on File) Date Activated Date Inactivated Comments 12/10/2018 8:27 PM 12/12/2018 5:22 PM Care Teams Precision Farming Coordinator Relationship Specialty Start Date End Date Bennie Hahn MD PCP - General Internal Medicine 05/09/21
[2025-04-20 16:08] VITALS: BP 205/98; PULSE 82; RESP 16; TEMP 36.4; O2SAT 100
--- NOTE | 2025-04-20 16:13 | ECG_ITS ---
Test Date: 2025-04-20 17:30:00 Measurements Intervals Wilson Rate: 71 P: 17 NV: 152 QRS: 23 QRSD: 85 T: 6 QT: 400 QTc: 437 Interpretive Statements SINUS RHYTHM BASELINE ARTIFACT- V4-V6 NORMAL ECG No previous ECG available for comparison Electronically Signed On 04-20-2025 20:18:55 CDT by José Layton D.O.
--- NOTE | 2025-04-20 16:14 | ED.ABDPAIN ---
HPI - Abdominal Pain General Chief Complaint: Abdominal Pain <Pamela Draper PA-C - Last Filed: 04/20/25 16:16> Stated Complaint: abdominal pain <Pamela Draper PA-C - Last Filed: 04/20/25 16:16> Time Seen by Provider: 04/20/25 18:20 <Pamela Draper PA-C - Last Filed: 04/20/25 16:16> Focused HPI: 50-year-old female with reported history of hypertension and gastric ulcers presents to emergency department for epigastric abdominal pain for 1 day. Patient states she began developing a burning and sharp sensation in her epigastrium is worse with eating. She denies nausea, vomiting, fever, chest pain or shortness of breath, melena or hematochezia, hematemesis or coffee-ground emesis. Has had some diarrhea with it as well. She notes she had a gastric sleeve about 5 years ago and a gastric sleeve revision about 3 years ago. She had an endoscopy and colonoscopy performed by Dr. Mo in [place] 4 months ago which reportedly showed a gastric ulcer. She states she was taking 2 pills for 2 months after the procedure but she is unsure of the name. She is not taking any medications at this time. She has not followed up her GI specialist. GENERAL: Well-appearing, well-nourished, and in no acute distress. HEAD: Normocephalic, atraumatic. CHEST: Clear to auscultation. ?No respiratory distress. ABD: Tenderness to the epigastrium and left upper quadrant. No rebound or rigidity. HEART: Regular rate and rhythm.? NEURO: ?Alert and oriented x3. Patient screened in triage and initial orders placed.? ?Additional care and disposition to be based upon?diagnostic testing and treatment. <Pamela Draper PA-C - Last Filed: 04/20/25 16:16> History of Present Illness HPI narrative: Agree with HPI <Ernesto Reyna MD - Last Filed: 04/20/25 21:45> Related Data Home Medications: Home Medications ?Medication ?Instructions ?Recorded ?Confirmed ?Last Taken ?Type losartan 100 1 tablet PO DAILY 10/21/21 10/21/21 History mg-hydrochlorothiazide 25 mg tablet <Pamela Draper PA-C - Last Filed: 04/20/25 16:16> Allergies/Adverse Reactions: Allergies Allergy/AdvReac Type Severity Reaction Status Date / Time hydrocodone (From Vicodin) Allergy Itching Verified 04/20/25 15:52 azithromycin AdvReac Vomiting Verified 04/20/25 15:52 erythromycin base AdvReac Vomiting Verified 04/20/25 15:52 tramadol AdvReac Vomiting Verified 04/20/25 15:52 <Pamela Draper PA-C - Last Filed: 04/20/25 16:16> Review of Systems Review of Systems: Gen.: Denies fevers or chills Eyes: Denies eye pain or visual change ENT: Denies congestion Respiratory: Denies shortness of breath or cough CV: Denies chest pain or palpitations GI: Abdominal pain and diarrhea, denies nausea and vomiting. denies burning, urgency, frequency or hematuria Musculoskeletal: Denies back pain or muscle pain Neuro: Denies numbness, tingling, weakness or focal weakness Skin: Denies rash Except as documented, all other systems reviewed and negative <Ernesto Reyna MD - Last Filed: 04/20/25 21:45> [facility] Past Medical History Medical History: Medical History Hypertension Obesity Osteoarthritis <Pamela Draper PA-C - Last Filed: 04/20/25 16:16> Surgical History Surgical History: Surgical History History of cholecystectomy History of hysterectomy History of tonsillectomy <Pamela Draper PA-C - Last Filed: 04/20/25 16:16> Family History Family History: Family History Mother Diabetes mellitus <Pamela Draper PA-C - Last Filed: 04/20/25 16:16> Social History Social History: Social History Smoking packs per day: 0.25 Smoking cigarettes per day: 5.0 Smoking status: Current every day smoker Alcohol intake: current Alcohol use details: social Living arrangements: alone Additional occupation/education comments: Works for [employer] Gender identity (if verbalized by the patient): Female Sexual Orientation (if Verbalized by the Patient): Straight or Heterosexual Spiritual care concerns: No <Pamela Draper PA-C - Last Filed: 04/20/25 16:16> Exam Narrative: APPEARANCE: No acute distress, nontoxic, resting in bed EYES: EOMI HEENT: Normocephalic, atraumatic, OMM RESPIRATORY: No respiratory distress Clear to auscultation bilaterally with no rhonchi wheezing or rales. CARDIOVASCULAR: Regular rate and rhythm without murmurs rubs or gallops. ABDOMINAL: Soft, nontender, nondistended, no rebound or guarding MUSCULOSKELETAL: Moves all extremities. No clubbing, cyanosis or edema. NEURO: Awake and alert. Following commands, speech normal, no focal deficits SKIN:: Warm, dry. No rashes lesions or abrasions PSYCHIATRIC: Normal affect/mood, <Ernesto Reyna MD - Last Filed: 04/20/25 21:45> Course Vital Signs Vital signs: Vital Signs Temperature 97.6 F 04/20/25 16:08 Pulse Rate 82 04/20/25 16:08 Respiratory Rate 16 04/20/25 16:08 Blood Pressure 205/98 H 04/20/25 16:08 Pulse Oximetry 100 04/20/25 16:08 Oxygen Delivery Room Air 04/20/25 16:08 Temperature 97.6 F 04/20/25 16:08 Pulse Rate 71 04/20/25 19:45 Respiratory Rate 18 04/20/25 19:45 Blood Pressure 154/93 H 04/20/25 19:45 Pulse Oximetry 98 04/20/25 19:45 Oxygen Delivery Room Air 04/20/25 19:17 <Pamela Draper PA-C - Last Filed: 04/20/25 16:16> Vital Signs Temperature 97.6 F 04/20/25 16:08 Pulse Rate 82 04/20/25 16:08 Respiratory Rate 16 04/20/25 16:08 Blood Pressure 205/98 H 04/20/25 16:08 Pulse Oximetry 100 04/20/25 16:08 Oxygen Delivery Room Air 04/20/25 16:08 Temperature 97.6 F 04/20/25 16:08 Pulse Rate 71 04/20/25 19:45 Respiratory Rate 18 04/20/25 19:45 Blood Pressure 154/93 H 04/20/25 19:45 Pulse Oximetry 98 04/20/25 19:45 Oxygen Delivery Room Air 04/20/25 19:17 <Ernesto Reyna MD - Last Filed: 04/20/25 21:45> MDM - Abdominal Pain MDM Narrative Medical decision making narrative: 50-year-old female presenting to the ED for abdominal pain. Patient does have a history of a gastric bypass with prior history of peptic ulcer disease. Do not feel similar to prior peptic ulcer disease. She had periumbilical and suprapubic tenderness to palpation without peritoneal signs. She had mild hypokalemia and hyponatremia. UA was consistent with a UTI in the setting of her symptoms. She did have some improvement of pain with GI cocktail. She was given Keflex. She will be given prescription for Keflex, phenazopyridine. She was advised follow-up with PCP in the next week. She was also given a refill of her losartan. Patient was agreeable this plan. Given strict return precautions. <Ernesto Reyna MD - Last Filed: 04/20/25 21:45> Differential Diagnosis Differential diagnosis: Likely other (UTI, ACS, PUD, constipation, pancreatitis, electrolyte abnormality) <Ernesto Reyna MD - Last Filed: 04/20/25 21:45> Medical Records Attestation: I reviewed the patient's medical records. <Ernesto Reyna MD - Last Filed: 04/20/25 21:45> Lab Data Attestation: I reviewed the patient's lab results. <Ernesto Reyna MD - Last Filed: 04/20/25 21:45> Lab results narrative: mild hypokalemia <Ernesto Reyna MD - Last Filed: 04/20/25 21:45> Result diagrams: 04/20/25 17:30 04/20/25 17:30 <Pamela Draper PA-C - Last Filed: 04/20/25 16:16> Labs: Lab Results 04/20/25 04/20/25 Range/Units 17:22 17:30 WBC 7.5 (4.5-10.0) K/mm3 RBC 4.72 (4.2-5.4) M/mm3 Hgb 13.5 (12.0-15.0) g/dL Hct 42.0 (37.0-47.0) % MCV 89.0 (80-100) fl MCH 28.6 (26-34) pg MCHC 32.1 (32-36) g/dl RDW 14.0 (11.5-14.5) % Plt Count 220 (150-375) k/mm3 MPV 9.5 (7.4-10.4) fl Immature Gran % (Auto) 0.1 (0-0.5) % Neut % (Auto) 58.7 (45.5-73.1) % Lymph % (Auto) 34.3 (18.3-44.2) % [place] % (Auto) 5.4 (2.6-8.5) % Eos % (Auto) 0.8 (0-4.4) % Baso % (Auto) 0.7 (0.2-1.2) % Lymph # (Auto) 2.58 (0.9-3.2) K/mm3 [place] # (Auto) 0.4 (0.1-0.6) K/mm3 Eos # (Auto) 0.1 (0-0.3) K/mm3 Baso # (Auto) 0.1 (0.0-0.1) K/mm3 Abs Immat Gran (auto) 0.01 (0.00-0.031) K/mm3 Absolute Neuts (auto) 4.4 (1.3-6.7) K/mm3 Absolute Nucleated RBC 0.000 (0.0-0.012) K/mm3 Nucleated RBC % 0.0 (0.0-0.2) % Sodium 133 L (137-145) mmol/L Potassium 3.3 L (3.4-5.0) mmol/L Chloride 97 L (98-107) mmol/L Carbon Dioxide 28 (22-30) mmol/L Anion Gap 8 (4-12) mmol/L BUN 7 (7-17) mg/dL Creatinine 0.57 L (0.7-1.0) mg/dL Estim Creat Clear Calc 112 ml/min Estimated GFR > 60 (59 - ) Glucose 116 H (65-110) mg/dL Calcium 9.5 (8.4-10.2) mg/dL Total Bilirubin 0.6 (0.2-1.3) mg/dL AST 49 H (14-36) U/L ALT 45 H (6-35) U/L Alkaline Phosphatase 137 H (38-126) U/L Troponin I < 0.012 (0.000-0.034) ng/mL Total Protein 8.0 (6.3-8.2) g/dL Albumin 4.4 (3.5-5.1) g/dL Lipase 83 (23-300) U/L Urine Color Yellow (Yellow) Urine Appearance Cloudy H (Clear) Urine pH 7.0 (5.0-9.0) Ur Specific [place] 1.003 (1.001-1.035) Urine Protein Negative (Negative) mg/dL Urine Glucose (UA) Negative (Negative) mg/dL Urine Ketones Negative (Negative) mg/dL Ur Blood (Man) Negative (Negative) Urine Nitrate Negative (Negative) Urine Bilirubin Negative (Negative) Urine Urobilinogen 0.2 (<2.0) mg/dL Add Ur Microanalysis Reviewed Leukocyte Esterase Rfl 2+ H (Negative) YANELIS/UL Urine RBC 0-2 (0-2) /hpf Urine WBC 11-20 H (0-3) /hpf Ur Squamous Epith Cells Moderate (Few) /hpf Urine Bacteria Rare /hpf Urine Casts 0-2 <Pamela Draper PA-C - Last Filed: 04/20/25 16:16> Lab Results 04/20/25 04/20/25 Range/Units 17:22 17:30 WBC 7.5 (4.5-10.0) K/mm3 RBC 4.72 (4.2-5.4) M/mm3 Hgb 13.5 (12.0-15.0) g/dL Hct 42.0 (37.0-47.0) % MCV 89.0 (80-100) fl MCH 28.6 (26-34) pg MCHC 32.1 (32-36) g/dl RDW 14.0 (11.5-14.5) % Plt Count 220 (150-375) k/mm3 MPV 9.5 (7.4-10.4) fl Immature Gran % (Auto) 0.1 (0-0.5) % Neut % (Auto) 58.7 (45.5-73.1) % Lymph % (Auto) 34.3 (18.3-44.2) % [place] % (Auto) 5.4 (2.6-8.5) % Eos % (Auto) 0.8 (0-4.4) % Baso % (Auto) 0.7 (0.2-1.2) % Lymph # (Auto) 2.58 (0.9-3.2) K/mm3 [place] # (Auto) 0.4 (0.1-0.6) K/mm3 Eos # (Auto) 0.1 (0-0.3) K/mm3 Baso # (Auto) 0.1 (0.0-0.1) K/mm3 Abs Immat Gran (auto) 0.01 (0.00-0.031) K/mm3 Absolute Neuts (auto) 4.4 (1.3-6.7) K/mm3 Absolute Nucleated RBC 0.000 (0.0-0.012) K/mm3 Nucleated RBC % 0.0 (0.0-0.2) % Sodium 133 L (137-145) mmol/L Potassium 3.3 L (3.4-5.0) mmol/L Chloride 97 L (98-107) mmol/L Carbon Dioxide 28 (22-30) mmol/L Anion Gap 8 (4-12) mmol/L BUN 7 (7-17) mg/dL Creatinine 0.57 L (0.7-1.0) mg/dL Estim Creat Clear Calc 112 ml/min Estimated GFR > 60 (59 - ) Glucose 116 H (65-110) mg/dL Calcium 9.5 (8.4-10.2) mg/dL Total Bilirubin 0.6 (0.2-1.3) mg/dL AST 49 H (14-36) U/L ALT 45 H (6-35) U/L Alkaline Phosphatase 137 H (38-126) U/L Troponin I < 0.012 (0.000-0.034) ng/mL Total Protein 8.0 (6.3-8.2) g/dL Albumin 4.4 (3.5-5.1) g/dL Lipase 83 (23-300) U/L Urine Color Yellow (Yellow) Urine Appearance Cloudy H (Clear) Urine pH 7.0 (5.0-9.0) Ur Specific [place] 1.003 (1.001-1.035) Urine Protein Negative (Negative) mg/dL Urine Glucose (UA) Negative (Negative) mg/dL Urine Ketones Negative (Negative) mg/dL Ur Blood (Man) Negative (Negative) Urine Nitrate Negative (Negative) Urine Bilirubin Negative (Negative) Urine Urobilinogen 0.2 (<2.0) mg/dL Add Ur Microanalysis Reviewed Leukocyte Esterase Rfl 2+ H (Negative) YANELIS/UL Urine RBC 0-2 (0-2) /hpf Urine WBC 11-20 H (0-3) /hpf Ur Squamous Epith Cells Moderate (Few) /hpf Urine Bacteria Rare /hpf Urine Casts 0-2 <Ernesto Reyna MD - Last Filed: 04/20/25 21:45> Imaging Data Radiologist's impression: ITS Impressions Abdomen/Pelvis CT 04/20/25 18:42 IMPRESSION: Findings consistent with patient's history of gastric bypass Trace mural thickening within the gastric pouch. <Pamela Draper PA-C - Last Filed: 04/20/25 16:16> ITS Impressions Abdomen/Pelvis CT 04/20/25 18:42 IMPRESSION: Findings consistent with patient's history of gastric bypass Trace mural thickening within the gastric pouch. <Ernesto Reyna MD - Last Filed: 04/20/25 21:45> ECG Data EKG #1: Attestation: I personally reviewed and interpreted this ECG as follows: <Ernesto Reyna MD - Last Filed: 04/20/25 21:45> ECG completion date: 04/20/25 <Ernesto Reyna MD - Last Filed: 04/20/25 21:45> ECG completion time: 17:30 <Ernesto Reyna MD - Last Filed: 04/20/25 21:45> Prior ECG tracings: not available for review <Ernesto Reyna MD - Last Filed: 04/20/25 21:45> Interpretation: No sinus rhythm rate of 71, normal axis, normal intervals, no acute ST or T-wave changes <Ernesto Reyna MD - Last Filed: 04/20/25 21:45> Discharge Plan Discharge Clinical Impression: UTI (urinary tract infection), Hypertension <Pamela Draper PA-C - Last Filed: 04/20/25 16:16> Patient Disposition: Home <MAURY Lakhani Last Filed: 04/20/25 16:16> Condition: Stable <MAURY Lakhani Last Filed: 04/20/25 16:16> Instructions: Antibiotic Form, Urinary Tract Infection in Women (ED) <MAURY Lakhani Last Filed: 04/20/25 16:16> Patient Language: Gabonese <MAURY Lakhani Last Filed: 04/20/25 16:16> Prescriptions: New losartan 50 mg tablet 50 mg PO DAILY Qty: 14 0RF cephalexin 500 mg capsule 500 mg PO Q12H Qty: 10 0RF phenazopyridine 200 mg tablet 200 mg PO TID Qty: 6 0RF No Action sulfacetamide sodium 10 % ointment 1 applic RIGHT EYE Q6H 5 Days Qty: 3.5 0RF acetaminophen-codeine 300-30 mg tablet 1 tablet PO Q8H PRN (Reason: pain) Qty: 12 0RF losartan-hydrochlorothiazide 100-25 mg Tablet 1 tablet PO DAILY hydrocodone-acetaminophen 5-325 mg tablet 1 - 2 tablet PO Q6H PRN (Reason: pain) Qty: 15 0RF <MAURY Lakhani Last Filed: 04/20/25 16:16> Follow-up/Referrals: PHYSICIAN,SENIOR DATA MODELER [Primary Care Provider] - <MAURY aLkhani Last Filed: 04/20/25 16:16>
[2025-04-20] MEDS: BELLADONNA ALK/PHENOB ELIX 10 ML, MAG HYDROX/ALUMINUM HYD/SIMETH 30 ML, LIDOCAINE 2% VI... PO (17:22)
[2025-04-20] MEDS: ONDANSETRON INJ 4 MG/2 ML VIAL IV PUSH (17:37)
[2025-04-20] MEDS: PANTOPRAZOLE SODIUM IV 40 MG VIAL IV PUSH (17:42)
[2025-04-20 17:50] LABS: Hematocrit 42.0 % (37.0-47.0); Hemoglobin 13.5 g/dL (12.0-15.0); Immature Granulocyte Percent A 0.1 % (0-0.5); Lymphocytes Absolute Auto 2.58 K/mm3 (0.9-3.2); Mean Corpuscular HGB Conc 32.1 g/dl (32-36); Mean Corpuscular Hemoglobin 28.6 pg (26-34); Mean Corpuscular Volume 89.0 fl (80-100); Nucleated Red Blood Cells Absolute Auto 0.000 K/mm3 (0.0-0.012); Nucleated Red Blood Cells Perc 0.0 % (0.0-0.2); Platelet Count Result 220 k/mm3 (150-375); Red Blood Count 4.72 M/mm3 (4.2-5.4); White Blood Count 7.5 K/mm3 (4.5-10.0)
[2025-04-20 17:59] LABS: Add Urine Microscopic? YES; Appearance Urine Cloudy (Clear); Glucose Urine UA Negative (Negative); Leukocyte Esterase Ur 2+ LEU/UL (Negative); Need Manual Microscopic Reviewed; Nitrate Urine Negative (Negative); Non Pathogenic Casts 0-2; Specific Grav Ur 1.003 (1.001-1.035)
[2025-04-20 18:03] LABS: Alanine Aminotransferase 45 U/L (6-35); Albumin Level 4.4 g/dL (3.5-5.1); Alkaline Phosphatase 137 U/L (38-126); Anion Gap 8 mmol/L (4-12); Aspartate Amino Transferase 49 U/L (14-36); Bilirubin,Total 0.6 mg/dL (0.2-1.3); Blood Urea Nitrogen 7 mg/dL (7-17); Calcium 9.5 mg/dL (8.4-10.2); Carbon Dioxide 28 mmol/L (22-30); Chloride 97 mmol/L (98-107); Estimated CRCL calculation 112 ml/min; Estimated Glomerular Filt Rate > 60; Glucose 116 mg/dL (65-110); Lipase 83 U/L (23-300); Potassium 3.3 mmol/L (3.4-5.0); Sodium 133 mmol/L (137-145); Total Protein 8.0 g/dL (6.3-8.2)
[2025-04-20 18:13] LABS: Troponin I < 0.012 ng/mL (0.000-0.034)
--- OUTSIDE RECORDS SUMMARY | 2025-04-20 18:48 | XMS_ITS | Clinical Summary ---
Author Organization [facility] Address [address] [place] [address] Phone Care Team Providers Care Oakes Machine Operator Name Role Phone Jesus Bob DO Primary Care Provider [phone] Allergies Active Allergy Reactions Criticality Noted Date Comments Azithromycin Nausea and Vomiting High 10/26/2018 Erythromycin Nausea and Vomiting Low 05/09/2017 Ibuprofen Abdominal Pain Low 02/24/2022 Tramadol Nausea and Vomiting Low 09/18/2018 Medications Multivitamin Capsule 1 tablet(s), Oral, daily, 30 tablet(s), Tablet(s), 0 2 Active blood sugar diagnostic StripIndications :Type 2 diabetes mellitus without complication, without long-term current use of insulin ([facility]) Once daily testing, E11.9 100 Strip 2 [...] mg tablet Active naloxone (NARCAN) 4 mg/spray [place], Non-Aerosol EMERGENCY USE ONLY: Administer 1 spray [...] (07/12/2020): Added automatically from request for surgery [id number] Tobacco abuse 05/09/2017 Precordial chest pain 05/09/2017 [...] complication, without long-term current use of insulin ([facility]) MAMMO 3D PETR SCREEN BILAT W OR WO CAD Routine 04/28/2023 9:09 AM CDT Encounter for screening mammogram for malignant neoplasm of breast COLONOSCOPY REPORT 2021 11 :37 AM CDT from Last 3 Months or Most Recently Relevant to Health Maintenance Results * (ABNORMAL) HEMOGLOBIN A1C (04/28/2023 10:33 AM CDT) HEMOGLOBIN A1C 5.7(H) <5.7 % of total Hgb Juan Alberto [employer] Vanessa Comment: For someone without known diabetes, [...] AVERAGE GLUCOSE (MG/DL) 117 mg/dL Juan Alberto [employer] Vanessa ESTIMATED AVERAGE GLUCOSE (MMOL/L) 6.5 mmol/L Juan Alberto [employer] Vanessa Comment: FASTING:YES FASTING: YES Test Performed at: [facility] [address] [place] [address] ChioWilliamKimberlyn Olga Lopez Blood 04/28/2023 10:3 3 AM CDT 04/28/2023 10:33 AM CDT Kodi HUSTON CHEMISTRY ORDERABLES Final Res ult [facility] [phone] [place] [address] [address] [place] [phone] * (ABNORMAL) LIPID PANEL (04/28/2023 10:33 AM CDT) CHOLESTEROL 193 <200 mg/dL Juan Alberto [employer] Vanessa HDL 54 > OR = 50 mg/dL Juan Alberto [employer] Vanessa TRIGLYCERIDE 138 <150 mg/dL Juan Alberto Vanessa LDL CALCULATED 113(H) mg/dL (calc) Juan Alberto [employer] Vanessa Comment: Reference range: <100 Desirable range <100 mg/dL for primary prevention; <70 mg/dL for patients with CHD or diabetic patients with > or = 2 CHD risk factors. LDL-C is now calculated using the Binh calculation, which is a validated novel method providing better accuracy than the Friedewald equation in the estimation of LDL-C. [employer] et al. THOMAS. 2013;310(02): 5582-6611 (http://education.Ante Up/faq/KHW630) CHOL/HDL RATIO 3.6 <5.0 (calc) [facility] TOTAL NON-HDL CHOL(LDL+VLDL) 139(H) <130 mg/dL (calc) [facility] Comment: For patients with diabetes plus 1 major ASCVD risk factor, treating to a non-HDL-C goal of <100 mg/dL (LDL-C of <70 mg/dL) is considered a therapeutic option. FASTING:YES FASTING: YES Test Performed at: [place] [address] [address] [phone] ChioTova Lopez Blood 04/28/2023 10:3 3 AM CDT 04/28/2023 10:33 AM CDT Kodi HUSTON CHEMISTRY ORDERABLES Final Res ult [facility] [phone] [place] [address] [address] [phone] * MAMMO SCRN BILAT 3D PETR W [...] Rodriguez MD - 04/08/2021 12:51 PM CDT [facility] Endoscopy Patient Name: Ravinder Delgado Procedure Date: [...] of Addenda: [address]; [place] [address] Charles Rodriguez MD GI PROCEDURE ORDERABLES Marycruz l Result from Last 3 Months or Most Recently Relevant to Health Maintenance Insurance [employer] [id number] [employer] RX [employer] RX Member Subscriber Plan / Payer (Ef fective for All Dates) Name:Ravinder Delgado Relation to Subscriber:Self Name:Ravinder Delgado Subscriber ID:Not on file Payer ID:Not on file Group ID:[id number] Type:RX Commercial Address: [place], [place] RX LERMA PLANS (INTERNAL) [facility] Care Teams Oakes Machine Operator Relationship Specialty Start Date End Date Jesus Bob DO [address] [id number] [place] [phone] PCP - General Family Practice 09/30/23
--- OUTSIDE RECORDS SUMMARY | 2025-04-20 18:48 | XMS_ITS | Clinical Summary ---
Author Organization [facility] Address [facility] [place] [address] Care Team Providers Care Printed Circuit Boards Inspector Name Role Phone Bennie Hahn MD Primary Care Provider [phone] Allergies Active Allergy Reactions Criticality Noted Date [...] (12/07/2018): Added automatically from request for surgery [id number] Arthralgia of left knee 09/18/2018 Osteoarthritis of [...] on file Legal Sex Female 12:44 PM CALCULUS TUTOR Gender Identity Female 05/14/2021 11:38 AM CDT Sexual Orientation Straight 05/14/2021 11 :38 AM CDT Obstetrics History Last Filed Vital Signs Vital Sign Reading Time Taken Comments Blood Pressure 173/100 09/17/2023 5:30 AM CALCULUS TUTOR Pulse 59 09/17/2023 5:30 AM CALCULUS TUTOR Temperature 37.2 C (98.9 F) 09/16/2023 7:07 PM CALCULUS TUTOR Respiratory Rate 16 09/17/2023 5:30 AM CALCULUS TUTOR Oxygen Saturation 98% 09/17/2023 5:30 AM CALCULUS TUTOR Inhaled Oxygen Concentration - - Weight 111.1 kg (245 lb) 09/16/2023 7:07 PM CALCULUS TUTOR Height 162.6 cm (5' 4) 09/16/2023 7:07 PM CALCULUS TUTOR Body Mass Index 42.05 09/16/2023 7:07 PM CALCULUS TUTOR Plan of Treatment Health Maintenance Due Date [...] 2) 2025 Influenza Vaccine (#1) 2025 Insurance [facility] H[facility]/PPO Address: [facility] [address] [place] [address] [facility] H[facility]/PPO Address: [address] [address] [place] [address] [employer] [facility] CHOICE [facility] H[facility]/PPO Address: [address] [address] [place] [address] Advance Directives For more information, please contact: [phone] * Full Code (Latest Code Status on File) Date Activated Date Inactivated Comments 12/10/2018 8:27 PM 12/12/2018 5:22 PM Care Teams Printed Circuit Boards Inspector Relationship Specialty Start Date End Date Bennie Hahn MD PCP - General Internal Medicine 05/09/21
--- OUTSIDE RECORDS SUMMARY | 2025-04-20 18:48 | XMS_ITS | Clinical Summary ---
Author Organization [facility] Address [address] [place] [address] Care Team Providers Care Pitting Machine Operator Name Role Phone Mike Hahn MD Primary Care Provider [phone] Source Comments [facility],non-owned Affiliates and Associated Physician Practices is amultiple site organization consisting of ambulatory clinics and hospital sitesin [place], [place], [place] and [place]. This disclosure is being madepursuant to the Care Everywhere program and may not contain all information available regarding this patient. Last updated 18.[facility] Allergies Active Allergy Reactions Criticality Noted Date [...] 10/05/2020 Active Cholecalciferol (VITAMIN D3) 1.25 MG ([address] [place]) capsule Take 1 capsule by mouth [...] PM CDT Legal Sex Female 6:31 AM SOAP SLABBER Gender Identity Female 02/27/2021 4:55 PM CDT [...] - 105 mg/dL 03/22/2021 10:57 PM CDT [facility] Sodium 139 136 - 145 mmol/L 03/22/2021 10:57 PM CDT [facility] Potassium 3.5 3.5 - 5.1 mmol/L 03/22/2021 10:57 PM CDT [facility] Chloride 100 98 - 107 mmol/L 03/22/2021 10:57 PM CDT [facility] CO2 26 23 - 31 mmol/L 03/22/2021 10:57 PM CDT [facility] Calcium 9.8 8.4 - 10.4 mg/dL 03/22/2021 10:57 PM CDT [facility] Anion Gap 13 8 - 18 mmol/L 03/22/2021 10:57 PM CDT [facility] BUN 15 7 - 18.7 mg/dL 03/22/2021 10:57 PM CDT [facility] Creatinine 0.80 0.57 - 1.11 mg/dL 03/22/2021 10:57 PM CDT [facility] eGFR by MDRD >60 >60 mL/min/1.7 3m2 03/22/2021 10:57 PM CDT [facility] eGFR by MDRD >60 >60 mL/min/1.7 3m2 03/22/2021 10:57 PM CDT [facility] Blood BLOOD SPECIMEN / Unknown Venipuncture / Unknown 03/22/2021 10:34 PM CDT 03/22/2021 10:38 PM CDT us Mason Rider DO LAB - CHEMISTRY ORDERABLES Fin al Result [facility] [address] [place] [address] * MAGALI SCREENING DIGITAL IMAGE [...] participate in the care of your patient. [facility] utilizes [employer] as a reminder system to notify patients of their next recommended mammogram. I, Irais Lund, have personally reviewed the images and I agree with this report. us Javier Barboza MD MAMMO ORDERABLES Final Result from Last 3 Months or Most Recently Relevant to Health Maintenance Insurance [facility] [place] [address] Advance Directives * Full Code (Latest Code Status on File) Date Activated Date Inactivated Comments 11/01/2020 11:10 AM 11/02/2020 10:43 AM Care Teams Pitting Machine Operator Relationship Specialty Start Date End Date Mike Hahn MD [address] [facility] [place] [address] PCP - General Internal Medicine 12/06/20
--- OUTSIDE RECORDS SUMMARY | 2025-04-20 18:48 | XMS_ITS | Clinical Summary ---
Author Organization [facility] Address [address] [place] [address] Care Team Providers Care Field Marketing Lead Name Role Phone Juan Johns MD Primary [...] 06/29/2024 Assessment & Plan (09/21/2024 1:38 PM PARK KEEPER): Chronic. Uncontrolled. Previously but has been on [...] Vaccine (1 - season) 2024 PHQ-2 (Physician [place]) 09/14/2024 06/01/2024 Zoster Vaccines (1 of 2) [...] patient's age to complete this topic Insurance [facility] [place] Care Teams Field Marketing Lead Relationship Specialty Start Date End Date María VII, Juan Bell MD [address] [place] [id number] PCP - General FAMILY PRACTICE 06/01/24
[2025-04-20 18:54] VITALS: BP 213/107; PULSE 75; RESP 14; O2SAT 98
[2025-04-20 19:01] VITALS: BP 196/100; PULSE 74; RESP 19; O2SAT 98
[2025-04-20] MEDS: KETOROLAC 15 MG/ML VIAL (*BKC) IV PUSH (19:14)
[2025-04-20 19:16] VITALS: BP 207/112; PULSE 64; RESP 16; O2SAT 99
[2025-04-20 19:17] VITALS: PULSE 67; RESP 18; O2SAT 99
[2025-04-20 19:45] VITALS: BP 154/93; PULSE 71; RESP 18; O2SAT 98
[2025-04-20] MEDS: CEPHALEXIN 500 MG CAPSULE PO (19:46)
[2025-04-20] MEDS: LOSARTAN POTASSIUM 50 MG TABLET PO (19:46)
[2025-04-20] MEDS: POTASSIUM CHLORIDE 20 MEQ ER TABLET 40 MEQ PO (19:50)
== END 2025-04-20 20:27 | disposition home or self-care (01) ==
PROVIDERS: Physician Assistant; Emergency Provider Student in an Organized Health Care Education/Training Program
DX: N39.0 Urinary tract infection, site not specified (principal); I10 Essential (primary) hypertension; M19.90 Unspecified osteoarthritis, unspecified site; Z90.49 Acquired absence of other specified parts of digestive tract; Z90.710 Acquired absence of both cervix and uterus; F17.210 Nicotine dependence, cigarettes, uncomplicated
CPT/HCPCS: 36415; 74177; 80053; 81001; 83690; 84484; 85025; 93005; 96374; 96375; 99284; A9270; J0360; J1885; J2405; J2470; Q9967

== ENCOUNTER 2025-07-12 15:55 | Emergency (ER) | payer OTHER, SELFPAY ==
--- NOTE | ~2025-07-12 | CT_ITS ---
EXAMINATION: CT brain wo con COMPARISON: None HISTORY: headache- head injury TECHNIQUE: Axial images were obtained through the brain without IV contrast. CT scan performed using dose optimization techniques including the following automated exposure control; adjustment of mA and/or kV; use of iterative reconstruction technique. Automatic exposure control was used to reduce radiation dose. Permanent radiation dose record is archived to PACS. FINDINGS: No acute infarct or parenchymal hemorrhage. No abnormal mass or mass effect. No midline shift. No extra-axial fluid collections. No hydrocephalus. . Mastoid air cells unremarkable. Sinuses and orbits unremarkable. No acute fracture. No significant facial or scalp soft tissue swelling evident. No radiopaque foreign body is seen. Impression: 1.No acute intracranial abnormality. Reviewed, dictated and finalized at location P. Impression: 1.No acute intracranial abnormality.
--- NOTE | ~2025-07-12 | CT_ITS ---
EXAMINATION: CT facial bones wo con DATE: 07/12/2025 16:20 INDICATION: Right orbital pain TECHNIQUE: Computed tomography (CT) of the facial bones and maxillofacial region was performed without intravenous contrast. Coronal reconstructions were obtained. Automated exposure control and iterative reconstruction technique were employed. The dose-length product was 405.48 mGy-cm. COMPARISON: None. FINDINGS: No maxillofacial fractures. Specifically the hernandez of the orbits and paranasal sinuses, the zygomatic arches, mandible and nasal bones are all intact. Nasal septum is midline. Orbits are normal with intact appearing globes and no inflammatory stranding. The paranasal sinuses, mastoid air cells and middle ear cavities are clear. Bilateral parotid and submandibular glands and visualized portions of the thyroid gland are normal. No pathologically enlarged facial or anterior cervical lymphadenopathy. C3-C4 discectomy and prosthetic disc placement.. IMPRESSION: 1. Normal orbits with no maxillofacial fractures. Reviewed, dictated and finalized at location A.
[2025-07-12 15:57] VITALS: BP 203/126; PULSE 77; RESP 16; TEMP 36.3; O2SAT 100
--- NOTE | 2025-07-12 16:03 | ED.HEATRA ---
HPI - Head Injury General Chief complaint: Eye Problems <Noe Villavicencio APRN - Last Filed: 07/12/25 16:11> Stated complaint: R eye injury <Noe Villavicencio APRN - Last Filed: 07/12/25 16:11> Time Seen by Provider: 07/12/25 16:03 <Noe Villavicencio APRN - Last Filed: 07/12/25 16:11> Focused HPI: Ravinder is a 50-year-old female patient presenting to the ER today with complaints of a fall on Thursday. She reports she did have a few drinks and felt as though she loss consciousness and hit her face on the sink. Has pain around the right orbit and some blurry vision with drainage coming from the eye. Reports the headache rating it 6/10 currently. Has been taking Tylenol with some relief. Blood pressure 203/126. GENERAL: Well-appearing, well-nourished, and in no acute distress. HEAD: Normocephalic, atraumatic. CHEST: Clear to auscultation. No respiratory distress. HEART: Regular rate and rhythm. NEURO: Alert and oriented x3. Patient screened in triage and initial orders placed. Additional care and disposition to be based upon diagnostic testing and treatment. <Noe Villavicencio APRN - Last Filed: 07/12/25 16:11> Source: patient <Noe Villavicencio APRN - Last Filed: 07/12/25 16:11> Mode of arrival: ambulatory <Noe Villavicencio APRN - Last Filed: 07/12/25 16:11> Limitations: no limitations <Noe Villavicencio APRN - Last Filed: 07/12/25 16:11> History of Present Illness HPI Narrative: I agree with the above HPI <Alexus Shah, ASSISTANT PROJECT ENGINEER - Last Filed: 07/12/25 19:03> Related Data Home medications: Home Medications ?Medication ?Instructions ?Recorded ?Confirmed ?Last Taken ?Type losartan 100 1 tablet PO DAILY 10/21/21 10/21/21 History mg-hydrochlorothiazide 25 mg tablet <Noe Villavicencio APRN - Last Filed: 07/12/25 16:11> Allergies/Adverse reactions: Allergies Allergy/AdvReac Type Severity Reaction Status Date / Time hydrocodone (From Vicodin) Allergy Itching Verified 07/12/25 15:59 azithromycin AdvReac Vomiting Verified 07/12/25 15:59 erythromycin base AdvReac Vomiting Verified 07/12/25 15:59 tramadol AdvReac Vomiting Verified 07/12/25 15:59 <Noe Villavicencio APRN - Last Filed: 07/12/25 16:11> Review of Systems Review of Systems: All systems reviewed & are unremarkable except as noted in HPI and below <Alexus Shah APRN - Last Filed: 07/12/25 19:03> PMFSH Past Medical History Medical History: Medical History Obesity Hypertension Osteoarthritis <Noe Villavicencio APRN - Last Filed: 07/12/25 16:11> Surgical History Surgical History: Surgical History History of hysterectomy History of cholecystectomy History of tonsillectomy <Noe Villavicencio APRN - Last Filed: 07/12/25 16:11> Family History Family History: Family History Mother Diabetes mellitus <Noe Villavicencio APRN - Last Filed: 07/12/25 16:11> Social History Social History: Social History Smoking packs per day: 0.25 Smoking cigarettes per day: 5.0 Smoking status: Current every day smoker Alcohol intake: current Alcohol use details: social Living arrangements: alone Additional occupation/education comments: Works for [employer] Gender identity (if verbalized by the patient): Female Sexual Orientation (if Verbalized by the Patient): Straight or Heterosexual Spiritual care concerns: No <Noe Villavicencio APRN - Last Filed: 07/12/25 16:11> Exam Narrative: GENERAL: Well appearing, well-nourished, non-toxic, in no acute distress. HEAD: Normocephalic, atraumatic. PERRLA. Redness around sclera NECK: Supple. No adenopathy, no masses. RESPIRATORY: Airway patent, respirations nonlabored. Clear to auscultation bilaterally, no rales, rhonchi, wheezing. CARDIOVASCULAR: Regular rate and rhythm without murmurs, rubs, or gallops. Peripheral pulses 2+ and equal bilaterally. ABDOMINAL: Soft, nontender, nondistended, no hepatosplenomegaly. Normoactive BS. MUSCULOSKELETAL: Moves all extremities. Strength/ROM intact without gross deformities. SKIN: Warm, dry, normal color. No rashes. NEURO: A&O X3. Speech clear. Cranial nerves II-XII intact. No ataxic movements. PSYCHIATRIC: Appropriate mood and affect. Normal interaction. <Alexus Shah, ASSISTANT PROJECT ENGINEER - Last Filed: 07/12/25 19:03> Course Vital Signs Vital signs: Vital Signs Temperature 36.3 C L 07/12/25 15:57 Pulse Rate 77 07/12/25 15:57 Respiratory Rate 16 07/12/25 15:57 Blood Pressure 203/126 H 07/12/25 15:57 Pulse Oximetry 100 07/12/25 15:57 Temperature 36.4 C 07/12/25 18:21 Pulse Rate 73 07/12/25 18:21 Respiratory Rate 16 07/12/25 18:21 Blood Pressure 176/103 H 07/12/25 18:21 Pulse Oximetry 100 07/12/25 18:21 <Noe Villavicencio, ASSISTANT PROJECT ENGINEER - Last Filed: 07/12/25 16:11> Vital Signs Temperature 36.3 C L 07/12/25 15:57 Pulse Rate 77 07/12/25 15:57 Respiratory Rate 16 07/12/25 15:57 Blood Pressure 203/126 H 07/12/25 15:57 Pulse Oximetry 100 07/12/25 15:57 Temperature 36.4 C 07/12/25 18:21 Pulse Rate 73 07/12/25 18:21 Respiratory Rate 16 07/12/25 18:21 Blood Pressure 176/103 H 07/12/25 18:21 Pulse Oximetry 100 07/12/25 18:21 <Alexus Shah, ASSISTANT PROJECT ENGINEER - Last Filed: 07/12/25 19:03> MDM - Head Injury MDM Narrative Medical decision making narrative: Ravinder is a 50-year-old female patient presenting to the ER today with complaints of a fall on Thursday. She reports she did have a few drinks and felt as though she loss consciousness and hit her face on the sink. Has pain around the right orbit and some blurry vision with drainage coming from the eye. Reports the headache rating it 6/10 currently. Has been taking Tylenol with some relief. Pt reports she hasn't taken her blood pressure medication in a few weeks and would like a refill. Labs Ordered: CBC, CMP, PTT, INR, troponin Imaging Ordered: CT head, CT facial bones Medications Ordered: 1 L normal saline IV bolus, Benadryl IV, Decadron IV, Reglan IV, losartan p.o. (pt's home medication), Toradol IV Results: Patient's CT scans indicate no acute abnormalities. Diagnosis: concussion, right orbital hematoma Patient Education/Shared MDM: Results of lab work and imaging shared with patient. she endorses improvement of symptoms following medication administration. Patient strongly advised to follow-up with her PCP as soon as possible regarding her elevated blood pressure readings. She will be discharged home with a prescription for losartan and ibuprofen 800 mg. Strict return precautions provided. Patient verbalized understanding and is in agreement with plan. Vital signs stable at time of discharge. All questions answered. <Alexus Shah APRN - Last Filed: 07/12/25 19:03> Differential Diagnosis Differential diagnosis: Likely concussion without loss of consciousness, closed head injury, subarachnoid hematoma and other ( facial fracture, orbital fracture) <Alexus Shah APRN - Last Filed: 07/12/25 19:03> Lab Data Attestation: I reviewed the patient's lab results. <Alexus Shah APRN - Last Filed: 07/12/25 19:03> Result diagrams: 07/12/25 16:51 07/12/25 16:51 <Noe Villavicencio APRN - Last Filed: 07/12/25 16:11> Labs: Lab Results 07/12/25 Range/Units 16:51 WBC 7.0 (4.5-10.0) K/mm3 RBC 4.55 (4.2-5.4) M/mm3 Hgb 13.4 (12.0-15.0) g/dL Hct 43.0 (37.0-47.0) % MCV 94.5 (80-100) fl MCH 29.5 (26-34) pg MCHC 31.2 L (32-36) g/dl RDW 14.8 H (11.5-14.5) % Plt Count 286 (150-375) k/mm3 MPV 9.5 (7.4-10.4) fl Immature Gran % (Auto) 0.6 H (0-0.5) % Neut % (Auto) 45.9 (45.5-73.1) % Lymph % (Auto) 44.4 H (18.3-44.2) % Crook % (Auto) 7.1 (2.6-8.5) % Eos % (Auto) 1.4 (0-4.4) % Baso % (Auto) 0.6 (0.2-1.2) % Lymph # (Auto) 3.11 (0.9-3.2) K/mm3 Crook # (Auto) 0.5 (0.1-0.6) K/mm3 Eos # (Auto) 0.1 (0-0.3) K/mm3 Baso # (Auto) 0.0 (0.0-0.1) K/mm3 Abs Immat Gran (auto) 0.04 H (0.00-0.031) K/mm3 Absolute Neuts (auto) 3.2 (1.3-6.7) K/mm3 Absolute Nucleated RBC 0.000 (0.0-0.012) K/mm3 Nucleated RBC % 0.0 (0.0-0.2) % PT 11.6 (11.1-14.7) Seconds INR 0.8 APTT 22.6 (22.3-36.8) Seconds Sodium 137 (137-145) mmol/L Potassium 3.7 (3.4-5.0) mmol/L Chloride 102 (98-107) mmol/L Carbon Dioxide 25 (22-30) mmol/L Anion Gap 10 (4-12) mmol/L BUN 14 D (7-17) mg/dL Creatinine 0.65 L (0.7-1.0) mg/dL Estim Creat Clear Calc 97 ml/min Estimated GFR > 60 (59 - ) Glucose 87 (65-110) mg/dL Calcium 9.1 (8.4-10.2) mg/dL Total Bilirubin 0.5 (0.2-1.3) mg/dL AST 40 H (14-36) U/L ALT 38 H (6-35) U/L Alkaline Phosphatase 120 (38-126) U/L Troponin I < 0.012 (0.000-0.034) ng/mL Total Protein 8.4 H (6.3-8.2) g/dL Albumin 4.6 (3.5-5.1) g/dL <Noe Villavicencio, ASSISTANT PROJECT ENGINEER - Last Filed: 07/12/25 16:11> Lab Results 07/12/25 Range/Units 16:51 WBC 7.0 (4.5-10.0) K/mm3 RBC 4.55 (4.2-5.4) M/mm3 Hgb 13.4 (12.0-15.0) g/dL Hct 43.0 (37.0-47.0) % MCV 94.5 (80-100) fl MCH 29.5 (26-34) pg MCHC 31.2 L (32-36) g/dl RDW 14.8 H (11.5-14.5) % Plt Count 286 (150-375) k/mm3 MPV 9.5 (7.4-10.4) fl Immature Gran % (Auto) 0.6 H (0-0.5) % Neut % (Auto) 45.9 (45.5-73.1) % Lymph % (Auto) 44.4 H (18.3-44.2) % Crook % (Auto) 7.1 (2.6-8.5) % Eos % (Auto) 1.4 (0-4.4) % Baso % (Auto) 0.6 (0.2-1.2) % Lymph # (Auto) 3.11 (0.9-3.2) K/mm3 Crook # (Auto) 0.5 (0.1-0.6) K/mm3 Eos # (Auto) 0.1 (0-0.3) K/mm3 Baso # (Auto) 0.0 (0.0-0.1) K/mm3 Abs Immat Gran (auto) 0.04 H (0.00-0.031) K/mm3 Absolute Neuts (auto) 3.2 (1.3-6.7) K/mm3 Absolute Nucleated RBC 0.000 (0.0-0.012) K/mm3 Nucleated RBC % 0.0 (0.0-0.2) % PT 11.6 (11.1-14.7) Seconds INR 0.8 APTT 22.6 (22.3-36.8) Seconds Sodium 137 (137-145) mmol/L Potassium 3.7 (3.4-5.0) mmol/L Chloride 102 (98-107) mmol/L Carbon Dioxide 25 (22-30) mmol/L Anion Gap 10 (4-12) mmol/L BUN 14 D (7-17) mg/dL Creatinine 0.65 L (0.7-1.0) mg/dL Estim Creat Clear Calc 97 ml/min Estimated GFR > 60 (59 - ) Glucose 87 (65-110) mg/dL Calcium 9.1 (8.4-10.2) mg/dL Total Bilirubin 0.5 (0.2-1.3) mg/dL AST 40 H (14-36) U/L ALT 38 H (6-35) U/L Alkaline Phosphatase 120 (38-126) U/L Troponin I < 0.012 (0.000-0.034) ng/mL Total Protein 8.4 H (6.3-8.2) g/dL Albumin 4.6 (3.5-5.1) g/dL <Alexus Shah APRN - Last Filed: 07/12/25 19:03> Imaging Data Attestation: I personally reviewed and interpreted this imaging study as follows: <Alexus Shah APRN - Last Filed: 07/12/25 19:03> Radiologist's impression: Impressions Head CT 07/12/25 16:27 Impression: 1.No acute intracranial abnormality. Face CT 07/12/25 16:45 IMPRESSION: 1. Normal orbits with no maxillofacial fractures. <Alexus Shah APRN - Last Filed: 07/12/25 19:03> Discharge Plan Discharge Clinical Impression: Concussion, Subconjunctival hemorrhage, Hematoma of right orbit Hypertension Qualifiers: Hypertension type: unspecified Qualified Code(s): I10 - Essential (primary) hypertension <Noe Villavicencio APRN - Last Filed: 07/12/25 16:11> Patient Disposition: Home <Noe Villavicencio APRN - Last Filed: 07/12/25 16:11> Condition: Stable <Noe Villavicencio APRN - Last Filed: 07/12/25 16:11> Instructions: Antibiotic Form <Noe Villavicencio APRN - Last Filed: 07/12/25 16:11> Additional Instructions: Please return to the ER with any worsening symptoms. Follow-up with primary care provider as soon as possible regarding your high blood pressure readings. Take all medications as prescribed, including regularly scheduled medications. You may take Tylenol and ibuprofen together for pain control. <Noe Villavicencio APRN - Last Filed: 07/12/25 16:11> Patient Language: Latvian <Noe Villavicencio APRN - Last Filed: 07/12/25 16:11> Prescriptions: New ibuprofen 800 mg tablet 800 mg PO TID PRN (Reason: pain) Qty: 30 0RF losartan 50 mg tablet 50 mg PO DAILY Qty: 30 0RF No Action sulfacetamide sodium 10 % ointment 1 applic RIGHT EYE Q6H 5 Days Qty: 3.5 0RF acetaminophen-codeine 300-30 mg tablet 1 tablet PO Q8H PRN (Reason: pain) Qty: 12 0RF losartan 50 mg tablet 50 mg PO DAILY Qty: 14 0RF cephalexin 500 mg capsule 500 mg PO Q12H Qty: 10 0RF phenazopyridine 200 mg tablet 200 mg PO TID Qty: 6 0RF losartan-hydrochlorothiazide 100-25 mg Tablet 1 tablet PO DAILY hydrocodone-acetaminophen 5-325 mg tablet 1 - 2 tablet PO Q6H PRN (Reason: pain) Qty: 15 0RF <Noe Villavicencio APRN - Last Filed: 07/12/25 16:11> Follow-up/Referrals: PHYSICIAN NOT ON STAFF,NONSTAFF [Non-Staff] Clyde Espitia MD [Physician, Family Practice] Referral Note: primary care provider <Noe Villavicencio APRN - Last Filed: 07/12/25 16:11> Stand Alone Forms: Work/School Release IP <Noe Villavicencio APRN - Last Filed: 07/12/25 16:11> Time of Disposition: 19:03 <Noe Villavicencio APRN - Last Filed: 07/12/25 16:11> 19:03 <Alexus Shah APRN - Last Filed: 07/12/25 19:03>
--- NOTE | 2025-07-12 16:10 | ECG_ITS ---
Test Date: 2025-07-12 16:28:24 Measurements Intervals [place] Rate: 78 P: 12 NV: 152 QRS: 19 QRSD: 86 T: 6 QT: 388 QTc: 444 Interpretive Statements SINUS RHYTHM BORDERLINE T WAVE ABNORMALITY- INFERIOR LEADS BORDERLINE ECG No previous ECG available for comparison Electronically Signed On 07-12-2025 20:19:22 CDT by José Layton D.O.
[2025-07-12 17:04] LABS: Hematocrit 43.0 % (37.0-47.0); Hemoglobin 13.4 g/dL (12.0-15.0); Immature Granulocyte Percent A 0.6 % (0-0.5); Lymphocytes Absolute Auto 3.11 K/mm3 (0.9-3.2); Mean Corpuscular HGB Conc 31.2 g/dl (32-36); Mean Corpuscular Hemoglobin 29.5 pg (26-34); Mean Corpuscular Volume 94.5 fl (80-100); Nucleated Red Blood Cells Absolute Auto 0.000 K/mm3 (0.0-0.012); Nucleated Red Blood Cells Perc 0.0 % (0.0-0.2); Platelet Count Result 286 k/mm3 (150-375); Red Blood Count 4.55 M/mm3 (4.2-5.4); White Blood Count 7.0 K/mm3 (4.5-10.0)
[2025-07-12 17:11] LABS: INR 0.8; Partial Thromboplastin Time 22.6 Seconds (22.3-36.8); Prothrombin Time 11.6 Seconds (11.1-14.7)
[2025-07-12 17:17] LABS: Alanine Aminotransferase 38 U/L (6-35); Albumin Level 4.6 g/dL (3.5-5.1); Alkaline Phosphatase 120 U/L (38-126); Anion Gap 10 mmol/L (4-12); Aspartate Amino Transferase 40 U/L (14-36); Bilirubin,Total 0.5 mg/dL (0.2-1.3); Blood Urea Nitrogen 14 mg/dL (7-17); Calcium 9.1 mg/dL (8.4-10.2); Carbon Dioxide 25 mmol/L (22-30); Chloride 102 mmol/L (98-107); Estimated CRCL calculation 97 ml/min; Estimated Glomerular Filt Rate > 60; Glucose 87 mg/dL (65-110); Potassium 3.7 mmol/L (3.4-5.0); Sodium 137 mmol/L (137-145); Total Protein 8.4 g/dL (6.3-8.2)
[2025-07-12 17:27] LABS: Troponin I < 0.012 ng/mL (0.000-0.034)
[2025-07-12] MEDS: SODIUM CHLORIDE 0.9% IV 1,000 ML 999 ML IV CONT (18:01)
[2025-07-12] MEDS: KETOROLAC 15 MG/ML VIAL (*BKC) IV PUSH (18:01)
[2025-07-12] MEDS: METOCLOPRAMIDE HCL INJ 10 MG/2 ML VIAL IV PUSH (18:01)
[2025-07-12] MEDS: dexAMETHasone SOD PHOS INJ 10 MG/ML 1 ML VIAL IV PUSH (18:01)
[2025-07-12] MEDS: LOSARTAN POTASSIUM 50 MG TABLET PO (18:02)
[2025-07-12 18:21] VITALS: BP 176/103; PULSE 73; RESP 16; TEMP 36.4; O2SAT 100
--- NOTE | 2025-07-12 18:26 | PC.NURSE ---
EDP aware of patients elevated blood pressure.
== END 2025-07-12 19:17 | disposition home or self-care (01) ==
PROVIDERS: Nurse Practitioner Family; Emergency Provider Registered Nurse
DX: S06.0X0A Concussion without loss of consciousness, initial encounter (principal); S05.11XA Contusion of eyeball and orbital tissues, right eye, initial encounter; H11.31 Conjunctival hemorrhage, right eye; I10 Essential (primary) hypertension; E66.9 Obesity, unspecified; Z68.34 Body mass index [BMI] 34.0-34.9, adult; M19.90 Unspecified osteoarthritis, unspecified site; F17.210 Nicotine dependence, cigarettes, uncomplicated; Z90.710 Acquired absence of both cervix and uterus; Z90.49 Acquired absence of other specified parts of digestive tract; W01.198A Fall on same level from slipping, tripping and stumbling with subsequent striking against other object, initial encounter
CPT/HCPCS: 36415; 70450; 70486; 80053; 84484; 85025; 85610; 85730; 93005; 96361; 96374; 96375; 99284; A9270; J1100; J1200; J1885; J2765; J7030